=== PATIENT | male | born 1980 | race Caucasian/White ===

== ENCOUNTER 2023-09-09 16:24 | Emergency (ER) | payer BC, SELFPAY ==
[2023-09-09 16:24] VITALS: BP 139/99; PULSE 82; RESP 18; TEMP 36.1; O2SAT 98
--- NOTE | 2023-09-09 16:38 | ED.SKABFB ---
HPI - Skin/Abscess/Foreign Bdy General Chief complaint: Skin/Abscess/Foreign Body Stated complaint: insect bite Time Seen by Provider: 09/09/23 16:27 Source: patient Mode of arrival: ambulatory Limitations: no limitations History of Present Illness HPI narrative: this is a 43-year-old male that presents with some insect bite to his right posterior ear causing inflammation swelling and erythema warmth and tenderness with no fever chills no drainage no chest pain no shortness breath no nausea vomiting. complaint: insect bite/sting Onset (ago): day(s) Location: face Severity: mild Related Data Home Medications Medication Instructions Recorded Confirmed amitriptyline 10 mg tablet 10 mg PO HS 09/09/23 09/09/23 Allergies Allergy/AdvReac Type Severity Reaction Status Date / Time quetiapine [From Seroquel] Allergy Palpitation Verified 09/09/23 16:30 s Review of Systems Review of Systems: All systems reviewed & are unremarkable except as noted in HPI and below PMFSH Past Medical History Medical History History of HIV infection Exam Const: General: healthy appearing and no acute distress Nutritional Appearance: well nourished Orientation/consciousness: patient oriented x3 HENMT: Other: swollen right ear and posterior ear with a punctate lesion erythema warmth and tenderness with palpation with no drainage. Neck: Neck: normal visual inspection Chest: Chest palpation & inspection: normal inspection of the chest Resp: Effort & Inspection: normal respiratory effort Auscultation: clear to auscultation bilaterally Cardio: Rate: regular rate Rhythm: regular rhythm Skin: Wounds: wounds noted Extrem: General: normal to inspection Course Course Emergency Course: Patient received a dose of 1g ceftriaxone IM otherwise doing well will send antibiotics by mouth to his local pharmacy. Vital Signs Vital signs: Vital Signs Temperature 36.1 C L 09/09/23 16:24 Pulse Rate 82 09/09/23 16:24 Respiratory Rate 18 09/09/23 16:24 Blood Pressure 139/99 H 09/09/23 16:24 Pulse Oximetry 98 09/09/23 16:24 Oxygen Delivery Room Air 09/09/23 16:24 Temperature 36.1 C L 09/09/23 16:24 Pulse Rate 82 09/09/23 16:24 Respiratory Rate 18 09/09/23 16:24 Blood Pressure 139/99 H 09/09/23 16:24 Pulse Oximetry 98 09/09/23 16:24 Oxygen Delivery Room Air 09/09/23 16:24 Critical Care Time Critical Care Time Critical Care Time: No Discharge Plan Discharge Clinical Impression: Cellulitis, Insect bites Patient Disposition: Home, Self-Care Condition: Stable Instructions: Antibiotic Form, Cellulitis (ED), Insect Bite or Sting (ED) Additional Instructions: advised to take antibiotics as prescribed and follow with primary if symptoms persist or worsen. Prescriptions: New amoxicillin-pot clavulanate [Augmentin] 500-125 mg tablet 1 tablet PO TID Qty: 30 0RF No Action amitriptyline 10 mg tablet 10 mg PO HS Follow-up/Referrals: UNKNOWN,DOCTOR [Primary Care Provider] - Time of Disposition: 16:43
[2023-09-09] MEDS: cefTRIAXone 1 GM, LIDOCAINE HCL 1% LOCAL INJ 2.1 ML IM (16:48)
== END 2023-09-09 17:00 | disposition home or self-care (01) ==
LOC: CHSED 16:55
PROVIDERS: Emergency Provider Emergency Medicine
DX: S00.462A Insect bite (nonvenomous) of left ear, initial encounter (principal); H60.12 Cellulitis of left external ear; W57.XXXA Bitten or stung by nonvenomous insect and other nonvenomous arthropods, initial encounter; B20 Human immunodeficiency virus [HIV] disease
CPT/HCPCS: 96372; 99283; J0696

== ENCOUNTER 2024-12-22 17:28 | Emergency (ER) | payer BC, SELFPAY ==
--- OUTSIDE RECORDS SUMMARY | 2024-08-31 05:00 | XMS_ITS ---
Author Organization [facility], Address [address] [place] [address] Care Team Providers Care Therapeutic Recreation Leader Name Role Phone JoshuaDelvin Primary Care Provider UnavailGarcía Mckeon Unavailable [phone] ALLERGIES No Known Allergies RESULTS Component Value Reference Range Notes X ray : Cervical Spine 7 vie ws, AP, Lateral, Swimmers, Obliques, Flexion and Extension Reviewed date:08/31/2024 01:25:32 PM Interpretation: Performing Lab: Notes/Report: REASON FOR VISIT REPORT SCANNED INTO PATIENT DOCS/WORK-COMP MEDICATIONS Medication SIG (Take, Route, Fr equency, Duration) Notes Start Date End Date Status Biktarvy Active Nitroglycerin Active Losartan Potassium A ctive Albuterol Active Gabapentin Active Atorvastatin Calcium Active Plavix Active Aspirin Active Metoprolol Succinate Active Jardiance Active PROBLEMS Problem Type ICD Code Onset Dates Problem Status W/U Status Risk SNOMED Code Notes Problem Degeneration of cervical intervertebral disc (M50.30) Active confirmed Degeneration of cervical intervertebral disc (44725314) Problem 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) Active confirmed Joint imp lant in situ (finding) (112733792) Problem Hodgkin lymphoma, unspecified, unspecified site (C81.90) Active confirmed Hodgkin's disea se (disorder) (168310497) Problem Cerebral infarction, unspecified (I63.9) Active confirmed Cerebral infarction (778080584) Problem 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) Active confirmed Old myoca rdial infarction (9711782) Problem Human immunodeficiency virus [HIV] disease (B20) Active confirmed Human immunodeficiency virus infection (62538031) Problem Cervical pain (M54.2) Active confirmed Cervical pain (48915443) VITAL SIGNS BMI 28.48 kg/m2 08/31/2024 Height 72 in 08/31/2024 Weight 210 lbs 08/31/2024 Encounters Encounter Location Date Provider Diagnosis [facility] [address] [place] [address] 08/31/2024 García Valle Degeneration of cerv ical intervertebral disc M50.30 ; Pain in right shoulder M25.511 ; Presence of other orthopedic joint implants Z96.698 ; Hodgkin lymphoma, unspecified, unspecified site C81.90 ; Cerebral infarction, unspecified I63.9 ; Old myocardial infarction I25.2 and Human immunodeficiency virus [HIV] disease B20 ASSESSMENTS Encounter Date Diagnosis Assessment Notes Treatment Notes Treatment Clinical Notes 08/31/2024 Degeneration of cervical intervertebral disc (ICD-10 - M50.30) 08/31/2024 Pain in right should er (ICD-10 - M25.511) 08/31/2024 Presence of other orthopedic joint implants (ICD-10 - Z96.698) 08/31/2024 Hodgkin lymphoma, unspecified, unspecified site (ICD-10 - C81.90) 08/31/2024 Cerebral infarction, unspecified (ICD-10 - I63.9) 08/31/2024 Old myocardial infarction (ICD-10 - I25.2) 08/31/2024 Human immunodeficien cy virus [HIV] disease (ICD-10 - B20) PLAN OF TREATMENT No Information
[2024-12-22 17:30] VITALS: BP 132/89; PULSE 72; RESP 16; TEMP 36.7; O2SAT 93
--- OUTSIDE RECORDS SUMMARY | 2024-12-22 17:30 | XMS_ITS | Clinical Summary ---
Author Organization [facility] Address [address] [place] [address] Phone Care Team Providers Care Driver License Examiner Name Role Phone Jose Roberto Tejeda MD Primary Care Provider + [phone] Allergies Active Allergy Reactions Criticality Noted Date Comments Quetiapine Fumarate Palpitations High 05/09/2019 Passed out, hypertension, hallucinations, palpitations Medications gabapentin (NEURONTIN) 800 MG Tablet Take 800 mg by mouth 4 times daily. 9 Active rOPINIRole (REQUIP) 0.5 MG Tablet Take 0.5 mg by mouth daily as needed. Active fluconazole (DIFLUCAN) 200 MG Tablet TAKE 1 TABLET BY MOUTH EVERY WEEK 0 Active fenofibrate 160 MG Tablet 0 Active metoprolol Succinate (TOPROL-XL) 50 MG TABLET SR 24 HR Take 1 Tab by mouth daily. 0 Active albuterol 108 (90 Base) MCG/ACT Aerosol SolutionIndicat ions:History of COPD take 2 Puffs by inhalation every 4 hours as needed for Wheezing (shortness of breath). 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 HIV (human immunodeficiency virus infection) 04/2005 Immunizations Immunization Administration Dates Next Due Covid-19, Mrna, Lnp-s, Pf, 3 0 Mcg/0.3 Ml Dose ([employer] 07/31/2020,07/03/2020 DTP Vaccine 08/30/1987, 5,07/03/1983,1982,1982 Influenza Vaccine 01/24/2018,02/02/2017,02/29/20 14 Influenza Vaccine, Quadrivalent, PF 02/05/2021,0 04/16/2020 MMR Vaccine 11/27/1992,07/03/1983 OPV 06/18/1984, 4,1982,1982 Pneumococcal Vaccine - 13 Valent 02/28/2014 Pneumococcal Vaccine Adult - 23 Valent 06/28/2014,09/02/2008 TD VACCINE 09/03/2007,07/12/1996 TDAP Vaccine 12/18/2014 Tuberculin Skin Test; [facility] ed Protein Derivative Solutiol 09/11/2013 Family History Medical History Relation Name Comments Diabetes Brother ITP Diabetes Maternal Grandfather TTP Coronary Artery Disease Maternal Grandmother Diabetes Maternal Grandmother Chronic Obstructive Pulmonary Disease Mother Congestive Heart Failure Mother Coronary Artery Disease Mother Diabetes Mother Neuropathy Mother Parkinsonism Mother Relation Name Status Comments Brother Maternal Grandfather Maternal Grandmother Mother Social History Tobacco Use Types Packs/Day Years Used Date Smoking Tobacco: Every Day Cigarettes 1 18.9 Started: 02/05/2006 Smokeless Tobacco: Never Tobacco Cessation:Ready to Q uit: Not Asked; Counseling Given: Not Answered Alcohol Use Standard Drinks/Week Comments Not Currently 0 (1 standard drink = 0.6 oz pur e alcohol) twice a year or less AUDIT-C Answer Date Recorded Frequency of Alcohol Consumption Monthly or less 05/09/2019 Average Number of Drinks Not on file 020 Frequency of Binge Drinking Not on file 04/13 PHQ-2 Answer Date Recorded Total Score - Questions 1-9 0 01/11 Sexually Active Control Partners Comments Yes Male Condom Male intermittent us e Sex and Gender Information Value Date Recorded Sex Assigned at Not on file Legal Sex Male 9:26 AM CDT Gender Identity Not on file Sexual Orientation Not on file 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 Not on file Not on kanu e Last Filed Vital Signs Vital Sign Reading Time Taken Comments Blood Pressure 150/88 04/02/2022 8:37 AM WELL LOGGING CAPTAIN Pulse 90 04/02/2022 8:37 AM WELL LOGGING CAPTAIN Temperature 36.2 C (97.1 F) 04/02/2022 8:37 AM WELL LOGGING CAPTAIN Respiratory Rate 16 04/02/2022 8:37 AM WELL LOGGING CAPTAIN Oxygen Saturation 96% 04/02/2022 8:37 AM WELL LOGGING CAPTAIN Inhaled Oxygen Concentration - - Weight 92.8 kg (204 lb 9.6 oz) 04/02/2022 8:37 A M WELL LOGGING CAPTAIN Height 182.9 cm (6') 04/02/2022 8:37 AM WELL LOGGING CAPTAIN Body Mass Index 27.75 04/02/2022 8:37 AM WELL LOGGING CAPTAIN Plan of Treatment Health Maintenance Due Date Last Done Comments Meningococcal Immunization (ACWY) (1 - Risk 2-dose series) 1984 Hepatitis B Immunization (1 of 3 - 19+ 3-dose series) 2001 Human Papillomavirus (HPV) Immunization (1 - Risk 3-dose SCDM series) 2009 SARS-COV-2 Immunization (3 - Pfizer risk series) 08/28/2020 07/31/2020, 07/03/2020 Influenza Immunization (#1) 12/11/202401/11, 04/16/2020, 01/24/2018, Additional history exists DTaP/Tdap/Td Immunization (7 - Td or Tdap) 12/18/2024 12/18/2014, 09/03/2007, 07/12/1996, Additional history exists Pneumococcal Immunization Combined (4 of 4 - PCV20 or PCV21) 2032 06/28/2014, 02/28/2014, 09/02/2008 Respiratory Syncytial Virus (RSV) Immunization (Adult) (1 - 1-dose 75+ series) 2057 Hepatitis C Virus (HCV) Screening Completed 07/28/2021, 04/16/2020, 03/29/2019 Rotavirus Immunization Aged Out No lo nger eligible based on patient's age to complete this topic Procedures Procedure Name Priority Date/Time Associated Diagnosis Comments HEPATITIS PANEL ACUTE (AHP) Routine 04/16/2020 9:45 AM WELL LOGGING CAPTAIN HIV infection, unspecified symptom status (HCC) On highly active antiretroviral therapy (HAART) Need for hepatitis C screening test from Last 3 Months or Most Recently Relevant to Health Maintenance Results * (ABNORMAL) HEPATITIS PANEL ACUTE (AHP) (04/16/2020 9:45 AM WELL LOGGING CAPTAIN) HEPATITIS A IGM ANTIBODY NEGATIVE NEGATIVE 04/16/2020 5:18 PM WELL LOGGING CAPTAIN [facility] Comment:Samples containing > 500ng/ml of Biotin can have a falsely lower value. HEP B CORE AB (IGM) EQUIVOCAL(A) NEGATIVE 04/16/2020 5:18 PM WELL LOGGING CAPTAIN [facility] Comment: Equivocal result. Suggest repeat testing in 2 weeks to determine Hepatitis antibody status. Samples containing >250ng/ml of Biotin can have a falsely lower value. HEPATITIS B SURFACE ANTIGEN NEGATIVE NEGATIVE 04/16/2020 5:18 PM WELL LOGGING CAPTAIN [facility] Comment:Samples containing > 50 ng/ml of Biotin can have a falsely lower value, in samples with a low concentration of HBsAG HCV QUALITATIVE Negative Negative 5:18 PM [facility] Blood Venipuncture / Unknown 04/16/2020 9:45 AM WELL LOGGING CAPTAIN 04/16/2020 9:45 AM WELL LOGGING CAPTAIN us Baron Rivera MD HEMATOLOGY ORDERABLES Fin al Result [facility] [address] [place] [address] from Last 3 Months or Most Recently Relevant to Health Maintenance Insurance MEDICAID [employer] [place] Care Teams Driver License Examiner Relationship Specialty Start Date End Date Jose Roberto Tejeda MD [address] [address] PCP - General Family Medicine 05/09/19
--- OUTSIDE RECORDS SUMMARY | 2024-12-22 17:30 | XMS_ITS | Encounter Summary ---
Author Organization [facility] Address [address] [place] [address] Phone Care Team Providers Care Oil Refiner Name Role Phone Jose Roberto Tejeda MD Primary Care Provider + [phone] Oz Metz MD Unavailable Unavailable Reason for Visit * Reason Comments Medication Refill Encounter Details Date Type Department Care Team ([facility] st Contact Info) Description 10/17/2020 Refill [facility] [address] [facility] [place] [address] Baron Rivera MD Medication Refill Social History Tobacco Use Types Packs/Day Years Used Date Smoking Tobacco: Former Smokeless Tobacco: Never Alcohol Use Standard Drinks/Week Comments Not Currently 0 (1 standard drink = 0.6 oz pur e alcohol) twice a year or less AUDIT-C Answer Date Recorded Frequency of Alcohol Consumption Monthly or less 05/09/2019 Average Number of Drinks Not on file 020 Frequency of Binge Drinking Not on file 04/13 PHQ-2 Answer Date Recorded Total Score - Questions 1-9 0 08/2020 Sexually Active Control Partners Comments Yes Male Condom Male intermittent us e Sex and Gender Information Value Date Recorded Sex Assigned at Not on file Legal Sex Male 9:26 AM CDT Gender Identity Not on file Sexual Orientation Not on file 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 Not on file Not on file Not on kanu e documented as of this encounter Plan of Treatment Not on file documented as of this encounter Visit Diagnoses Not on filedocumented in this encounter Additional Health Concerns Assessment Noted Time PHQ-9 Depression Total Score: 0 04/16/19 21 9:00 AM COMPLEX CARE NURSE documented as of this encounter Care Teams Oil Refiner Relationship Specialty Start Date End Date Jose Roberto Tejeda MD [address] [address] PCP - General Family Medicine 05/09/19 Oz Metz MD [address] [address] Consulting Physician General Surgery 10/27/19 05/17/23 documented as of this encounter
--- OUTSIDE RECORDS SUMMARY | 2024-12-22 17:30 | XMS_ITS | Encounter Summary ---
Author Organization [facility] Address [address] [place] [address] Phone Care Team Providers Care Dramatic Critic Name Role Phone Jose Roberto Tejeda MD Primary Care Provider Oz Metz MD Unavailable Unavailable Reason for Visit * Reason Comments Medication Refill Encounter Details Date Type Department Care Team ([facility] st Contact Info) Description 09/11/2021 Refill [facility] [address] [facility] [place] [address] Baron Rivera MD Medication Refill Social History Tobacco Use Types Packs/Day Years Used Date Smoking Tobacco: Every Day Cigarettes 0.8 18.9 Started: 02/05/2006 Smokeless Tobacco: Never Alcohol Use Standard Drinks/Week [...] 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 No / Unsure 08/26/2021 8:05 AM CDT documented as of this encounter Miscellaneous Notes * Telephone Encounter - Jg Henry RN - 09/11/2021 3:14 PM CDT Sent refill request back with request for pat documented in this encounter Plan of Treatment Not on file documented as of this encounter Visit Diagnoses Not on filedocumented in this encounter Additional Health Concerns Assessment Noted Time PHQ-9 Depression Total Score: 0 02/06/20 21 9:00 AM CDT documented as of this encounter Care Teams Dramatic Critic Relationship Specialty Start Date End Date Jose Roberto Tejeda MD [address] [place] [id number] PCP - General Family Medicine 05/09/19 Oz Metz MD [address] [address] Consulting Physician General Surgery 10/27/19 05/17/23 documented as of this encounter
--- OUTSIDE RECORDS SUMMARY | 2024-12-22 17:30 | XMS_ITS | Encounter Summary ---
Author Organization [facility] Address [address] [place] [address] Phone Care Team Providers Care Rod Puller And Coiler Name Role Phone Jose Roberto Tejeda MD Primary Care Provider [phone] Oz Metz MD Unavailable Unavailable Reason for Visit * Reason Comments Medication Refill Encounter Details Date Type Department Care Team ([facility] st Contact Info) Description 04/15/2020 Refill [facility] [address] [facility] [place] [address] Baron Rivera MD Medication Refill Social History Tobacco Use Types Packs/Day Years Used Date Smoking Tobacco: Former Smokeless Tobacco: Never Alcohol Use Standard Drinks/Week Comments Yes 0 (1 standard drink = 0.6 oz [...] 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 No / Unsure 04/16/2020 9:34 AM FINGERPRINT CLASSIFIER documented as of this encounter Plan of Treatment Not on file documented as of this encounter Visit Diagnoses Not on filedocumented in this encounter Additional Health Concerns Infection Onset Date Last Indicated Resolved Time COVID - 19 05/05/2020 05/05/2020 05/25/2020 12:1 8 AM FINGERPRINT CLASSIFIER Assessment Noted Time PHQ-9 Depression Total Score: 0 11/08/19 20 1:00 PM CDT documented as of this encounter Care Teams Rod Puller And Coiler Relationship Specialty Start Date End Date Jose Roberto Tejeda MD [address] [address] PCP - General Family Medicine 05/09/19 Oz Metz MD [address] [address] Consulting Physician General Surgery 10/27/19 05/17/23 documented as of this encounter
--- NOTE | 2024-12-22 17:51 | ED.EAR ---
HPI - Ear Problem General Chief complaint: Ear Stated complaint: ear ache Time Seen by Provider: 12/22/24 17:51 Source: patient Limitations: no limitations History of Present Illness HPI Narrative: 44-year-old with a history of hyperlipidemia presents to the ER with a complaint of bilateral ear pain since this morning. Patient states that he tried to flush the ears with saline water ,No fever . MD Complaint: ear pain Location: bilateral Duration: constant Severity: mild Relieving factors: nothing Exacerbating factors: nothing Discharge from ear: Reports no Treatment prior to arrival: attempt at ear wax removal Related Data Home Medications ?Medication ?Instructions ?Recorded ?Confirmed ?Last Taken ?Type amitriptyline 10 mg tablet 10 mg PO HS 09/09/23 09/09/23 Unknown History atorvastatin 10 mg tablet 10 mg PO DAILY 09/09/23 12/22/24 Unknown History gabapentin 800 mg tablet 800 mg PO BID 09/09/23 12/22/24 Unknown History losartan 50 mg tablet 50 mg PO DAILY 09/09/23 09/09/23 Unknown History propranolol 20 mg tablet 20 mg PO DAILY 09/09/23 09/09/23 Unknown History sildenafil 50 mg tablet 50 mg PO PRN PRN Sexual Activity 09/09/23 09/09/23 Unknown History sumatriptan succinate 50 mg tablet 50 mg PO PRN PRN Migraine Headache 09/09/23 09/09/23 Unknown History Allergies Allergy/AdvReac Type Severity Reaction Status Date / Time quetiapine (From Seroquel) Allergy Palpitation Verified 12/22/24 17:40 s Review of Systems Review of Systems: All systems reviewed & are unremarkable except as noted in HPI and below Constitutional: Constitutional: Reports no additional constitutional complaints Eyes: Eyes: Reports no additional eye complaints ENT: Reports as per HPI Cardiovascular: Cardiovascular: Reports no additional cardiovascular complaints Respiratory: Respiratory: Reports no additional respiratory complaints Gastrointestinal: Gastrointestinal: Reports no additional gastrointestinal complaints Integumentary/Breasts: Skin/Breast: Reports system reviewed and no additional complaints, except as docu PMFSH Past Medical History Medical History History of HIV infection Exam Narrative: GENERAL: Well-appearing, well-nourished, and in no acute distress. HEAD: Normocephalic, atraumatic. EYES: PERRLA and EOMI. ENT: Nares clear, no rhinorrhea or epistaxis. Mucous membranes moist. both the TMs clear very minimal amount of cerumen present in the of the left ear canal NECK: Supple. CHEST: Clear to auscultation. No respiratory distress. HEART: Regular rate and rhythm. No murmur heard. Normal peripheral pulses. EXTREMITIES: Normal range of motion. No edema. SKIN: Warm, dry, no rash. NEURO: No focal deficits. Alert and oriented x3. PSYCH: Normal mood and affect. Course Vital Signs Vital signs: Vital Signs Temperature 36.7 C 12/22/24 17:30 Pulse Rate 72 12/22/24 17:30 Respiratory Rate 16 12/22/24 17:30 Blood Pressure 132/89 12/22/24 17:30 Pulse Oximetry 93 12/22/24 17:30 Oxygen Delivery Room Air 12/22/24 17:30 Temperature 36.7 C 12/22/24 17:30 Pulse Rate 72 12/22/24 17:30 Respiratory Rate 16 12/22/24 17:30 Blood Pressure 132/89 12/22/24 17:30 Pulse Oximetry 93 12/22/24 17:30 Oxygen Delivery Room Air 12/22/24 17:30 Medical Decision Making Vital Signs Vital Signs: Vital Signs Temperature 36.7 C 12/22/24 17:30 Pulse Rate 72 12/22/24 17:30 Respiratory Rate 16 12/22/24 17:30 Blood Pressure 132/89 12/22/24 17:30 Pulse Oximetry 93 12/22/24 17:30 Oxygen Delivery Room Air 12/22/24 17:30 Temperature 36.7 C 12/22/24 17:30 Pulse Rate 72 12/22/24 17:30 Respiratory Rate 16 12/22/24 17:30 Blood Pressure 132/89 12/22/24 17:30 Pulse Oximetry 93 12/22/24 17:30 Oxygen Delivery Room Air 12/22/24 17:30 Discharge Plan Discharge Clinical Impression: Otalgia of both ears Patient Disposition: Home Condition: Stable Instructions: Earache (ED) Patient Language: Uzbek Prescriptions: New mometasone [Nasonex 24hr Allergy] 50 mcg/actuation spray,non-aerosol 2 spray intranasal BID Qty: 17 0RF Rx Instructions: administer into each nostril prednisone 20 mg tablet 20 mg PO BID Qty: 10 0RF No Action amitriptyline 10 mg tablet 10 mg PO HS losartan 50 mg tablet 50 mg PO DAILY sildenafil 50 mg tablet 50 mg PO PRN PRN (Reason: Sexual Activity) atorvastatin 10 mg tablet 10 mg PO DAILY sumatriptan succinate 50 mg tablet 50 mg PO PRN PRN (Reason: Migraine Headache) gabapentin 800 mg tablet 800 mg PO BID propranolol 20 mg tablet 20 mg PO DAILY Follow-up/Referrals: Joshua,MD Delvin [Primary Care Provider, Unknown] Time of Disposition: 17:54
--- OUTSIDE RECORDS SUMMARY | 2024-12-22 17:57 | XMS_ITS | Encounter Summary ---
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
--- OUTSIDE RECORDS SUMMARY | 2024-12-22 17:57 | XMS_ITS | Encounter Summary ---
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 Not on file Not on file Not on kanu e documented as of this encounter Plan of Treatment Not on file documented as of this encounter Visit Diagnoses Not on filedocumented in this encounter Additional Health Concerns Assessment Noted Time PHQ-9 Depression Total Score: 0 04/16/19 21 9:00 AM 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
--- OUTSIDE RECORDS SUMMARY | 2024-12-22 17:57 | XMS_ITS | Clinical Summary ---
Author Organization [facility] Address [address] [place] [address] Phone Care Team Providers Care Service Sprinkler Helper Name Role Phone Jose Roberto Tejeda MD Primary Care Provider + [phone] Allergies Active Allergy Reactions Criticality Noted Date [...] EVERY DAY, tab, # 90, eRx: [id number] 1 Active Tivicay 50 MG Tablet TAKE [...] Lnp-s, Pf, 3 0 Mcg/0.3 Ml Dose (Bundle It) 07/31/2020,07/03/2020 DTP Vaccine 08/30/1987, 5,07/03/1983,1982,1982 Influenza Vaccine 01/24/2018,02/02/2017,02/29/20 14 Influenza Vaccine, Quadrivalent, PF 02/05/2021,0 04/16/2020 MMR Vaccine 11/27/1992,07/03/1983 OPV 06/18/1984, 4,1982,1982 Pneumococcal Vaccine - 13 Valent 02/28/2014 Pneumococcal Vaccine Adult - 23 Valent 06/28/2014,09/02/2008 TD VACCINE 09/03/2007,07/12/1996 TDAP Vaccine 12/18/2014 Tuberculin Skin Test; [facility] ed Protein Derivative Solutiol 09/11/2013 Family History [...] 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 Not on file Not on file Not on kanu e Last Filed Vital Signs Vital Sign Reading Time Taken Comments Blood Pressure 150/88 04/02/2022 8:37 AM GAUGER CHIEF Pulse 90 04/02/2022 8:37 AM GAUGER CHIEF Temperature 36.2 C (97.1 F) 04/02/2022 8:37 AM GAUGER CHIEF Respiratory Rate 16 04/02/2022 8:37 AM GAUGER CHIEF Oxygen Saturation 96% 04/02/2022 8:37 AM GAUGER CHIEF Inhaled Oxygen Concentration - - Weight 92.8 kg (204 lb 9.6 oz) 04/02/2022 8:37 A M GAUGER CHIEF Height 182.9 cm (6') 04/02/2022 8:37 AM GAUGER CHIEF Body Mass Index 27.75 04/02/2022 8:37 AM GAUGER CHIEF Plan of Treatment Health Maintenance Due Date [...] PANEL ACUTE (AHP) Routine 04/16/2020 9:45 AM GAUGER CHIEF HIV infection, unspecified symptom status (HCC) On highly active antiretroviral therapy (HAART) Need for hepatitis C screening test from Last 3 Months or Most Recently Relevant to Health Maintenance Results * (ABNORMAL) HEPATITIS PANEL ACUTE (AHP) (04/16/2020 9:45 AM GAUGER CHIEF) HEPATITIS A IGM ANTIBODY NEGATIVE NEGATIVE 04/16/2020 5:18 PM GAUGER CHIEF [facility] Comment:Samples containing > 500ng/ml of Biotin can have a falsely lower value. HEP B CORE AB (IGM) EQUIVOCAL(A) NEGATIVE 04/16/2020 5:18 PM GAUGER CHIEF [facility] Comment: Equivocal result. Suggest repeat testing in 2 weeks to determine Hepatitis antibody status. Samples containing >250ng/ml of Biotin can have a falsely lower value. HEPATITIS B SURFACE ANTIGEN NEGATIVE NEGATIVE 04/16/2020 5:18 PM GAUGER CHIEF [facility] Comment:Samples containing > 50 ng/ml of Biotin can have a falsely lower value, in samples with a low concentration of HBsAG HCV QUALITATIVE Negative Negative 5:18 PM [facility] Blood Venipuncture / Unknown 04/16/2020 9:45 AM GAUGER CHIEF 04/16/2020 9:45 AM GAUGER CHIEF us Baron Rivera MD HEMATOLOGY ORDERABLES Fin al Result [facility] [address] [place] [address] from Last 3 Months or Most Recently Relevant to Health Maintenance Insurance MEDICAID [employer] MEDICAID [place] Care Teams Service Sprinkler Helper Relationship Specialty Start Date End Date Jose Roberto Tejeda MD [address] [address] PCP - General Family Medicine 05/09/19
--- OUTSIDE RECORDS SUMMARY | 2024-12-22 17:57 | XMS_ITS | Clinical Summary ---
Author Organization [facility] Address [facility] [place] [address] Care Team Providers Care Immigration Officer Name Role Phone Jose Roberto Tejeda MD Primary Care Provider [phone] Allergies Active Allergy Reactions Criticality Noted Date Comments Quetiapine Tachycardia 03/15/2021 Medications dolutegravir 50 MG tablet Take 50 mg by mouth daily. 02/06/2021 Active rOPINIRole 0.5 MG tablet Take 0.5 mg by mouth daily as needed. Active emtricitabine-te nofovir 200-300 MG tablet Take 1 tablet by mouth daily. 02/06/2021 Active albuterol sulfate HFA 108 (90 Base) MCG/ACT inhaler Inhale 2 puffs into the lungs. 05/05/2020 Active darunavir-cobici stat (PREZCOBIX) 800 mg-150 mg tablet Take 1 tablet by mouth daily. 02/24/2021 Active gabapentin 800 MG tablet Take 800 mg by mouth 4 (four) times daily. Active Family History Medical History Relation Comments Diabetes Brother Diabetes Maternal Grandfather Heart Disease Maternal Grandfather Kidney Disease Maternal Grandfather Diabetes Maternal Grandmother Diabetes Mother Emphysema Mother Heart Disease Mother Parkinson's Disease Mother Relation Status Comments Brother Alive Maternal Grandfather Alive Maternal Grandmother Alive Mother Alive Social History Tobacco Use Types Packs/Day Years Used Date Smoking Tobacco: Every Day Cigarettes Smokeless Tobacco: Never Tobacco Cessation:Ready to Q uit: No; Counseling Given: Yes Alcohol Use Standard Drinks/Week Comments Not Currently 0 (1 standard drink = 0.6 oz pur e alcohol) Sex and Gender Information Value Date Recorded Sex Assigned at Not on file Legal Sex Male 10:48 PM SPRAGGER Gender Identity Not on file Sexual Orientation Not on file Last Filed Vital Signs Vital Sign Reading Time Taken Comments Blood Pressure 130/87 03/15/2021 4:30 AM SPRAGGER Pulse 89 03/15/2021 5:30 AM SPRAGGER Temperature 36.6 C (97.8 F) 03/15/2021 3:07 AM SPRAGGER Respiratory Rate 16 03/15/2021 5:30 AM SPRAGGER Oxygen Saturation 98% 03/15/2021 5:30 AM SPRAGGER Inhaled Oxygen Concentration - - Weight 97.5 kg (215 lb) 03/15/2021 3:21 AM SPRAGGER Height 182.9 cm (6') 03/15/2021 3:21 AM SPRAGGER Body Mass Index 29.16 03/15/2021 3:21 AM SPRAGGER Plan of Treatment Health Maintenance Due Date Last Done Comments Annual Physical 1985 Hepatitis B Vaccines (1 of 3 - 19+ 3-dose series) 2001 HPV Vaccines (1 - 3-dose SCDM series) 2009 COVID-19 Vaccine (3 - season) 2024 07/31/2020, 07/03/2020 DTaP, Tdap and Td Vaccines (7 - Td or Tdap) 12/18/2024 12/18/2014, 09/03/2007, 07/12/1996, Additional history exists Pneumococcal Vaccine: Pediatrics (0 to 5 Years) and At-Risk Patients (6 to 49 Years) (3 of 3 - PCV20 or PCV21) 2032 06/28/2014, 02/28/2014, 09/02/2008 Hepatitis C Completed 06/05/2022, 07/28/2021 Meningococcal B Vaccine Aged Out No l onger eligible based on patient's age to complete this topic Meningococcal Vaccine Aged Out No pam soledad eligible based on patient's age to complete this topic RSV Immunizations Under 20 Months Aged Out No longer eligible based on patient's age to complete this topic Procedures Procedure Name Priority Date/Time Associated Diagnosis Comments HEPATITIS PANEL,ACUTE Routine 06/05/2022 12:45 PM SPRAGGER HIV infection, asymptomatic On highly active antiretroviral therapy (HAART) from Last 3 Months or Most Recently Relevant to Health Maintenance Results * (ABNORMAL) HEPATITIS PANEL,ACUTE (06/05/2022 12:45 PM SPRAGGER) HEPATITIS B SURFACE AG NON-REACTIVE NON-REACT GABBIE 06/06/2022 9:[address] [facility] Comment:HBsAg NOT DETECTED. HEP B CORE IGM EQUIVOCAL RESULT(A) NON-REACT GABBIE 06/06/2022 9:[address] [facility] Comment: ANTIBODIES TO IgM ANTI HBc MAY OR MAY NOT BE PRESENT. CONSIDER RETESTING AT APPROXIMATELY ONE WEEK INTERVALS. HIGH DOSES OF BIOTIN MAY INTERFERE WITH THIS TEST RESULT. CORRELATION TO CLINICAL HISTORY AND PRESENTATION RECOMMENDED. HAV IGM NON-REACTIVE NON-REACT GABBIE 06/06/2022 9:[address] [facility] Comment: IgM ANTI HAV NOT DETECTED. DOES NOT EXCLUDE THE POSSIBILITY OF EXPOSURE TO OR INFECTION WITH HAV. LEVELS OF IgM ANTI HAV MAY BE BELOW THE CUTOFF IN EARLY INFECTION. HEPATITIS C AB NON-REACTIVE NON-REACT GABBIE 06/06/2022 9:[address] [facility] Comment: ANTIBODIES TO HCV NOT DETECTED. DOES NOT EXCLUDE THE POSSIBILITY OF EXPOSURE TO HCV. 06/05/2022 12:4 5 PM SPRAGGER Brady Powell MD LABORATORY Final Result [facility] [address] [place] [address], [id number] from Last 3 Months or Most Recently Relevant to Health Maintenance Insurance [employer] Care Teams Immigration Officer Relationship Specialty Start Date End Date Jose Roberto Tejeda MD [address] [place] [address] PCP - General FAMILY PRACTICE 03/15/21
--- OUTSIDE RECORDS SUMMARY | 2024-12-22 17:57 | XMS_ITS | Clinical Summary ---
Author Organization [facility] Address [address] [place] [address] Care Team Providers Care Oiler Helper Name Role Phone Delvin Lewis MD Primary Care Provider [phone] Melany Serra PT Unavailable Unavailabl e Allergies Active Allergy Reactions Criticality Noted Date Comments Quetiapine Palpitations,Other (See comments) High 04/23/2011 tachycardia and elevated blood pressure Passed out, hypertension, hallucinations, palpitations Tachycardia seroquel Medications cyanocobalamin , vitamin B-12, (VITAMIN B-12 ORAL)Indicatio ns:supplement Take 1 Caplet by mouth nightly Active blood-glucose meter (OneTouch Ultra2 Meter) misc USE DAILY 1 each 1 09/20/19 24 Active aspirin 81 mg enteric coated tabletIndicati ons:cardiovasc ular disease Take 1 tablet (81 mg total) by mouth daily 07/27/19 25 026 Active nitroglycerin (NITROSTAT) 0.[address] 1 tablet (0.4 mg total) under the tongue every 5 (five) minutes as needed for chest pain May repeat every 5 minutes for up to 3 doses. 100 tablet 07/26/[address] (CYMBALTA) 20 mg capsule Take 1 capsule (20 mg total) by mouth 2 (two) times a day 180 capsule 1 07/28/19 25 Active atorvastatin (LIPITOR) 80 mg tablet Take 0.5 tablets (40 mg total) by mouth daily 45 tablet 3 08/02/19 25 026 Active empagliflozin (JARDIANCE) 10 mg tabletIndicati ons:Chronic diastolic congestive heart failure, NYHA class 2 (HCC) Take 1 tablet (10 mg total) by mouth daily 90 tablet 3 08/10/19 25 Active metoprolol XL (TOPROL-XL) 50 mg extended release tabletIndicati ons:cardiovasc ular disease Take 1 tablet (50 mg total) by mouth 2 (two) times a day 180 tablet 3 08/10/19 25 Active albuterol HFA (PROVENTIL HFA,VENTOLIN HFA,PROAIR HFA) 90 mcg/actuation inhaler INHALE 2 PUFFS BY MOUTH EVERY 4 HOURS NEEDED FOR WHEEZING OR SHORTNESS OF BREATH 8.5 g 5 09/06/19 25 Active losartan (COZAAR) 50 mg tablet TAKE 1 TABLET(50 MG) BY MOUTH DAILY 90 tablet 3 09/13/19 25 Active clopidogreL (PLAVIX) 75 mg tabletIndicati ons:myocardial infarction prevention,car diovascular disease Take 1 tablet (75 mg total) by mouth daily 90 tablet 3 09/27/19 25 026 Active sildenafiL (VIAGRA) 50 mg tablet 09/08/19 25 Active bictegravir-em tricitabine-te nofovir (BIKTARVY) 50-200-25 mg tabletIndicati ons:HIV infection Take 1 tablet by mouth daily 30 tablet 3 10/03/19 25 Active gabapentin (NEURONTIN) 800 mg tablet TAKE 1 TABLET(800 MG) BY MOUTH THREE TIMES DAILY 270 tablet 1 12/13/19 25 Active gabapentin (NEURONTIN) 800 mg tablet Take 1 tablet (800 mg total) by mouth 3 (three) times a day 270 tablet 1 09/13/19 25 025 Discontinued Active Problems Problem Noted Date Diagnosed Date Aneurysm of ascending aorta without rupture 10/12 Overview (11/09/2024): 07/24/2024: 2D echo Doppler Mild ascending aortic aneurysm measured at 4.1 cm Assessment & Plan (11/09/2024 10:38 AM CDT): Patient without any complaints of back pain chest pain. Echo results were discussed with the patient. Plan: Scheduled the patient for a CTA of the chest abdomen and pelvis We will continue to follow aneurysm with serial echoes and if necessary chest CTs. Continue metoprolol 50 mg 1 p.o. b.i.d. Follow up in 6 months' time Tobacco use 11/09/2024 Overview (11/09/2024): Patient smokes 2-2-1/2 packs per day. States he has cut it back to 1 pack per day since having a heart attack Assessment & Plan (11/09/2024 10:38 AM CDT): Spent approximately 5 minutes discussed the need to stop all tobacco products. Plan: Encourage discontinuation all tobacco products Follow up 6 months time Healthcare maintenance 10/02/2024 Assessment & Plan (10/02/2024 8:57 AM CDT): Baseline labs: _ G6PD: unk or n/a _ HLA B*[id number]: unk or n/a _ CMV IgG: positive 06/2024 _ Toxo IgG: unk or n/a Vaccinations: See above _ Influenza: 02/2024 _ Sars-cov-2: several, 07/2020 _ MenACWY (0, 8 wks+; rpt q 5 yrs): unk or n/a _ Tdap (q 10 yrs): 12/2014 [] Hep B (0, 1, +/- 6 months; +/- CD4>200): immune 03/2024 [] Hep A (0, 6-12 months; +/- CD4>200): immune 02/2024 [] HPV (thru age 26; 0, 1-2, 6 months): unk or n/a [] MMR (0, 8 wk) unless [] Born before 1954 [] Lab immune; note: x2 - 11/1992 [] PCV-20/21: 02/2024 [] PCV-13: unk or n/a; PPSV-23 (0, 5 yrs+; CD4>200): 06/2014 [] RANDI (0, 3 months; CD4 > 200): unk or n/a [] RZV (0, 2-6 months; CD4 > 200): unk or n/a *(for those w/ h/o infx [born <1980=99%], lab immunity, VARx2) Other: [] RSV (75+ or 60-74 w/ RF); [] Mpox: unk Cancer screening: _ Anal cancer/ MARIBEL (yearly): unk or n/a _ Colon cancer (>45 or earlier if high risk factors): unk or n/a _ Prostate cancer (discuss): unk or n/a _ Breast cancer/ mammography (biennial 40-75): unk or n/a _ PAP smear: unk or n/a _ Lung cancer (annually if age 50-80, 20 pack-year hx, current or former < 15 yr smoker): unk or n/a Other: Dexa (post-menopausal and men > 50): unk or n/a 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 Status post PCI stenting with a 2.5 x 26 arlene Tompkins drug-eluting stent. Note dilated to 3.5 post deployment Assessment & Plan (11/09/2024 10:41 AM CDT): Patient doing well with no complaints of chest discomfort heaviness tightness or squeezing. No dyspnea on exertion PND or orthopnea. Tolerating in his medications well. Plan: Continue aspirin 81 mg daily Continue metoprolol XL 50 mg 1 p.o. b.i.d. Continue losartan 50 mg daily Continue Jardiance 10 mg daily Continue aggressive control of his cholesterol with Lipitor 40 mg once daily. Last LDL calculated was 66. Repeat his lipid profile in 6 months' time if he continues to have LDL above 50 would recommend a more aggressive treatment with doubling the Lipitor to 80 or adding Zetia 10 mg daily Chronic diastolic congestive heart failure, NYHA class 2 08/09/2024 Overview (11/09/2024): 07/24/2024 2D echo Doppler my interpretation Normal left ventricular cavity size and function; EF 60%; strain rate and -16 mildly reduced. Normal left ventricular cavity size and function Mild ascending aortic aneurysm measured at 4.1 cm Mild insufficiency of the mitral tricuspid valve Assessment & Plan (11/09/2024 1:35 PM CDT): Asymptomatic Follow up cardio Assessment & Plan (11/09/2024 10:42 AM CDT): Patient doing well with no complaints of chest pain heaviness tightness squeezing. No PND or orthopnea near-complete syncope shortness of breath lower extremity edema. Plan: Continue metoprolol 50 mg 1 p.o. b.i.d. Continue losartan 50 mg daily Continue aggressive control of lipids with atorvastatin 40 mg daily Continue aggressive control of his glucose with maintaining his hemoglobin A1c below 7.0%. Deferring this to primary at the present time. Continue Jardiance 10 mg once a day NSTEMI (non-ST elevated myocardial infarction) 0 07/23/2024 Assessment & Plan (11/09/2024 12:52 PM CDT): stable Follows with Cardiology Continue Rx Plavix daily, ASA 81mg daily, atorvastatin and metoprolol Assessment & Plan (07/27/2024 9:19 AM CDT): New problem, reason for hospitalization. Follows with Cardiology Continue Rx Plavix daily, ASA 81mg daily, atorvastatin and metoprolol Frequent headaches 03/22/2024 Assessment & Plan (03/22/2024 7:37 AM COMMERCIAL LINES UNDERWRITER): Recommend neuro follow up Anxiety 01/18/2024 Assessment & Plan (07/27/2024 9:32 AM CDT): Staes that anxiety has worsened especially due to recent hospitalization Continue Rx: Cymbalta 20mg BID and Hydroxyzine 25mg BID PRN Denies SI/HI at this time. Emergent BH information given including 911 with worsening Assessment & Plan (06/13/2024 7:48 AM COMMERCIAL LINES UNDERWRITER): Staes that anxiety has worsened But he feels more frustrated and doesn't knwo what to do about it Mostly frustrated with medical system due to his injury Assessment & Plan (01/18/2024 8:23 AM CDT): Staes that anxiety has worsened Has been having intermittent shortness of breath/tightness in chest/ ringing in ears Start duloxetine 20 mg bid for anxiety and to improve with pain/arm pain Current smoker 01/18/2024 Assessment & Plan (07/27/2024 9:15 AM CDT): Chronic problem. Smoking cessation encouraged. Information/education and counseling provided re: nicotine patches, daniel, [id number]. Cervical radiculopathy 07/23/2023 Assessment & Plan (06/13/2024 7:41 AM COMMERCIAL LINES UNDERWRITER): CTs pending Requested prior to scheduling with [facility] neurosurgery Assessment & Plan (08/17/2023 4:42 PM CDT): Improved since his surgery Numbness and tingling of right hand 05/27/2023 Assessment & Plan (06/10/2023 8:20 AM COMMERCIAL LINES UNDERWRITER): Not at goal Following ortho MRI elbow scheduled for 06/16 Prediabetes 03/09/2023 Assessment & Plan (11/09/2024 12:53 PM CDT): Chronic, stable. Hgb A1C Date Value Ref Range Status 07/24/2024 5.7 (H) 4.0 - 5.6 % Final 03/22/2024 5.5 4.0 - 5.6 % Final 02/21/2024 5.8 (H) 4.0 - 5.6 % Final Labs reviewed indicating glycemic control Recommend continue nutrition and exercise changes to prevent progression to T2DM. Consider [facility] nutrition services for diabetic education in the future. Assessment & Plan (07/27/2024 9:17 AM CDT): Chronic, stable. Hgb A1C Date Value Ref Range Status 07/24/2024 5.7 (H) 4.0 - 5.6 % Final 03/22/2024 5.5 4.0 - 5.6 % Final 02/21/2024 5.8 (H) 4.0 - 5.6 % Final Labs reviewed indicating glycemic control Recommend continue nutrition and exercise changes to prevent progression to T2DM. Consider [facility] nutrition services for diabetic education in the future. Assessment & Plan (06/10/2023 8:20 AM COMMERCIAL LINES UNDERWRITER): Lab Results Component Value Date HGBA1C 5.8 (H) 03/01/2023 Lab Results Component Value Date LDLCALC 78 03/01/2023 CREATININE 1.05 03/01/2023 At goal A1c Continue diet and exercise changes Every 6-12 months Assessment & Plan (03/09/2023 7:46 AM COMMERCIAL LINES UNDERWRITER): Lab Results Component Value Date HGBA1C 5.8 (H) 03/01/2023 Lab Results Component Value Date LDLCALC 78 03/01/2023 CREATININE 1.05 03/01/2023 At goal A1c New problem Monitor A1c yearly Mixed hyperlipidemia 03/09/2023 Assessment & Plan (11/09/2024 12:54 PM CDT): Lab Results Component Value Date CHOL 138 07/24/2024 CHOL 172 03/22/2024 CHOL 154 02/21/2024 Lab Results Component Value Date HDL 22 (L) 07/24/2024 HDL 30 (L) 03/22/2024 HDL 28 (L) 02/21/2024 Lab Results Component Value Date LDLCALC 66 07/24/2024 LDLCALC 105 03/22/2024 LDLCALC 100 02/21/2024 Lab Results Component Value Date TRIG 310 (H) 07/24/2024 TRIG 214 (H) 03/22/2024 TRIG 148 02/21/2024 Chronic condition, at goal LDL <100. Continue statin therapy as Rx: lipitor 80mg daily. Assessment & Plan (07/27/2024 9:27 AM CDT): Lab Results Component Value Date CHOL 138 07/24/2024 CHOL 172 03/22/2024 CHOL 154 02/21/2024 Lab Results Component Value Date HDL 22 (L) 07/24/2024 HDL 30 (L) 03/22/2024 HDL 28 (L) 02/21/2024 Lab Results Component Value Date LDLCALC 66 07/24/2024 LDLCALC 105 03/22/2024 LDLCALC 100 02/21/2024 Lab Results Component Value Date TRIG 310 (H) 07/24/2024 TRIG 214 (H) 03/22/2024 TRIG 148 02/21/2024 Chronic condition, not at goal LDL <100. Continue statin therapy as Rx: lipitor 80mg daily. Was previously on 10mg dose of this medication. I personally reviewed the above laboratory data indicating suboptimal control. Recommend heart-healthy diet. Assessment & Plan (06/13/2024 7:42 AM COMMERCIAL LINES UNDERWRITER): Lab Results Component Value Date CHOL 172 03/22/2024 CHOL 154 02/21/2024 CHOL 139 03/01/2023 Lab Results Component Value Date HDL 30 (L) 03/22/2024 HDL 28 (L) 02/21/2024 HDL 30 (L) 03/01/2023 Lab Results Component Value Date LDLCALC 105 03/22/2024 LDLCALC 100 02/21/2024 LDLCALC 78 03/01/2023 Lab Results Component Value Date TRIG 214 (H) 03/22/2024 TRIG 148 02/21/2024 TRIG 153 (H) 03/01/2023 No results found for: POCCHDLR No results found for: POCNONHDL No results found for: POCCHLPL The 10-year ASCVD risk score (Cristopher STREETER, et al., 2019) is: 5.8% Values used to calculate the score: Age: 44 years Sex: Male Is Non- : No Diabetic: No Tobacco smoker: Yes Systolic Blood Pressure: 110 mmHg Is BP treated: Yes HDL Cholesterol: 30 mg/dL Total Cholesterol: 172 mg/dL At goal at thsi time Low HDL Continue diet and exercise modifications C/w lipitor 10 mg every day now Assessment & Plan (03/22/2024 7:33 AM COMMERCIAL LINES UNDERWRITER): Lab Results Component Value Date CHOL 154 02/21/2024 CHOL 139 03/01/2023 Lab Results Component Value Date HDL 28 (L) 02/21/2024 HDL 30 (L) 03/01/2023 Lab Results Component Value Date LDLCALC 100 02/21/2024 LDLCALC 78 03/01/2023 Lab Results Component Value Date TRIG 148 02/21/2024 TRIG 153 (H) 03/01/2023 No results found for: POCCHDLR No results found for: POCNONHDL No results found for: POCCHLPL The 10-year ASCVD risk score (Cristopher STREETRE et al., 2019) is: 8% Values used to calculate the score: Age: 44 years Sex: Male Is Non- : No Diabetic: No Tobacco smoker: Yes Systolic Blood Pressure: 140 mmHg Is BP treated: Yes HDL Cholesterol: 28 mg/dL Total Cholesterol: 154 mg/dL At goal at thsi time Low HDL Continue diet and exercise modifications C/w lipitor 10 mg every day now Assessment & Plan (06/10/2023 8:19 AM COMMERCIAL LINES UNDERWRITER): Lab Results Component Value Date CHOL 139 03/01/2023 Lab Results Component Value Date HDL 30 (L) 03/01/2023 Lab Results Component Value Date LDLCALC 78 03/01/2023 Lab Results Component Value Date TRIG 153 (H) 03/01/2023 No results found for: POCCHDLR No results found for: POCNONHDL No results found for: POCCHLPL The 10-year ASCVD risk score (Cristopher STREETER, et al., 2019) is: 5% Values used to calculate the score: Age: 43 years Sex: Male Is Non- : No Diabetic: No Tobacco smoker: Yes Systolic Blood Pressure: 132 mmHg Is BP treated: Yes HDL Cholesterol: 30 mg/dL Total Cholesterol: 139 mg/dL At goal at thsi time Low HDL Continue diet and exercise modifications C/w lipitor 10 mg every day now Assessment & Plan (03/09/2023 8:13 AM COMMERCIAL LINES UNDERWRITER): Lab Results Component Value Date CHOL 139 03/01/2023 Lab Results Component Value Date HDL 30 (L) 03/01/2023 Lab Results Component Value Date LDLCALC 78 03/01/2023 Lab Results Component Value Date TRIG 153 (H) 03/01/2023 No results found for: POCCHDLR No results found for: POCNONHDL No results found for: POCCHLPL The 10-year ASCVD risk score (Cristopher STREETER, et al., 2019) is: 4.6% Values used to calculate the score: Age: 43 years Sex: Male Is Non- : No Diabetic: No Tobacco smoker: Yes Systolic Blood Pressure: 137 mmHg Is BP treated: No HDL Cholesterol: 30 mg/dL Total Cholesterol: 139 mg/dL At goal at thsi time Low HDL Continue diet and exercise modifications Will refuill lipitor 10 mg every day now HIV infection 03/09/2023 Assessment & Plan (11/09/2024 12:54 PM CDT): Follows with ID, -current regimen: Biktarvy PO daily Assessment & Plan (07/27/2024 9:19 AM CDT): Follows with ID, management per that specialist. -current regimen: Biktarvy PO daily, recommend continuing as Rx Assessment & Plan (06/13/2024 7:42 AM COMMERCIAL LINES UNDERWRITER): Continue current regimen Follow up ID as indicated by them Assessment & Plan (03/22/2024 7:19 AM COMMERCIAL LINES UNDERWRITER): Continue current regimen Follow up ID as indicated by them Assessment & Plan (01/18/2024 8:13 AM CDT): Continue current retroviral and ID follow up recommended Assessment & Plan (06/10/2023 8:25 AM COMMERCIAL LINES UNDERWRITER): Continue current retroviral and ID follow up recommended Assessment & Plan (03/09/2023 7:45 AM COMMERCIAL LINES UNDERWRITER): Continue current retroviral and ID follow up recommended History of Hodgkin's lymphoma 03/09/2023 Assessment & Plan (03/22/2024 7:38 AM COMMERCIAL LINES UNDERWRITER): Normal cbc Repeat now, check cxr Referral to oncology for follow up Assessment & Plan (03/09/2023 8:10 AM COMMERCIAL LINES UNDERWRITER): Normal cbc But in setting of weight loss Will do full work up Essential hypertension 03/09/2023 Assessment & Plan (11/09/2024 12:55 PM CDT): BP Readings from Last 3 Encounters: 11/09/24 134/74 11/01/24 140/89 10/02/24 119/78 There were no vitals taken for this visit. Lab Results Component Value Date POTASSIUM 3.3 07/25/2024 HPI: Condition is stable A&P: Discussed/ordered labs, encouraged healthy, low carbohydrate lifestyle and at least 150min/week of exercise, continue on - Continue metoprolol XL 50 mg 1 p.o. b.i.d. - Continue losartan 50 mg daily - Continue to monitor blood pressure at home record them and bring him in for evaluation next visit Assessment & Plan (11/09/2024 10:42 AM CDT): Patient is presently doing well on current treatment plan. He is having no complaints of headaches blurred vision double vision or other complaints compatible with prolonged elevation of blood pressure. He is not routinely taking his blood pressure at home however when he does take it is 120/70. Plan: Continue metoprolol XL 50 mg 1 p.o. b.i.d. Continue losartan 50 mg daily Continue to monitor blood pressure at home record them and bring him in for evaluation next visit Assessment & Plan (07/27/2024 9:16 AM CDT): BP Readings from Last 3 Encounters: 07/27/24 138/84 07/25/24 136/98 07/21/24 128/83 Chronic condition. Stable. Continue losartan 50mg and metoprolol XL 100mg daily as Rx. Recommend heart-healthy diet and regular exercise. Assessment & Plan (06/13/2024 7:42 AM COMMERCIAL LINES UNDERWRITER): BP Readings from Last 3 Encounters: 06/13/24 110/70 06/12/24 144/98 06/09/24 122/84 Vitals BP 110/70 (BP Location: Left arm, Patient Position: Sitting) Pulse 91 Resp 16 Ht 182.9 cm (6' 0.01) Wt 97.6 kg (215 lb 1.6 oz) SpO2 95% BMI 29.17 kg/m Lab Results Component Value Date POTASSIUM 3.8 05/19/2024 At goal C/w propranolol 20 mg tid, losartan to 50 mg every day Assessment & Plan (03/22/2024 7:20 AM COMMERCIAL LINES UNDERWRITER): BP Readings from Last 3 Encounters: 03/22/24 140/88 02/21/24 146/91 02/03/24 132/70 Vitals BP 140/88 (BP Location: Left arm, Patient Position: Sitting) Pulse 89 Resp 16 Ht 182.9 cm (6' 0.01) Wt 95.6 kg (210 lb 12.8 oz) SpO2 96% BMI 28.58 kg/m Lab Results Component Value Date POTASSIUM 3.6 02/21/2024 Not at goal at this time C/w propranolol 20 mg tid, losartan to 50 mg every day Assessment & Plan (01/18/2024 8:29 AM CDT): BP Readings from Last 3 Encounters: 01/18/24 128/94 08/17/23 130/82 07/28/23 (!) 156/109 Vitals BP 128/94 (BP Location: Right arm, Patient Position: Sitting) Pulse 86 Resp 16 Ht 170.2 cm (5' 7.01) Wt 92.3 kg (203 lb 6.4 oz) SpO2 97% BMI 31.85 kg/m Lab Results Component Value Date POTASSIUM 3.5 08/30/2023 Not at goal at this time C/w propranolol 20 mg tid, losartan to 50 mg every day Assessment & Plan (08/17/2023 4:41 PM CDT): BP Readings from Last 3 Encounters: 08/17/23 130/82 07/28/23 (!) 156/109 07/26/23 137/90 Vitals BP 130/82 (BP Location: Left arm, Patient Position: Sitting) Pulse 104 Resp 16 Ht 182.9 cm (6' 0.01) Wt 93.4 kg (206 lb) SpO2 98% BMI 27.93 kg/m Lab Results Component Value Date POTASSIUM 4.0 07/26/2023 Not at goal at this time C/w propranolol 20 mg tid, increase losartan to 50 mg every day Assessment & Plan (06/10/2023 8:19 AM COMMERCIAL LINES UNDERWRITER): BP Readings from Last 3 Encounters: 05/04/23 143/85 03/09/23 150/90 08/30/22 137/90 Vitals Resp 16 Ht 182.9 cm (6' 0.01) Wt 91.8 kg (202 lb 6.4 oz) BMI 27.44 kg/m Lab Results Component Value Date POTASSIUM 4.0 03/01/2023 Not at goal at this time C/w propranolol 20 mg tid, increase losartan to 50 mg every day Assessment & Plan (03/09/2023 8:15 AM COMMERCIAL LINES UNDERWRITER): BP Readings from Last 3 Encounters: 03/09/23 150/90 08/30/22 137/90 Vitals BP 150/90 (BP Location: Left arm, Patient Position: Sitting) Pulse 75 Resp 18 Ht 182.9 cm (6') Wt 89.8 kg (198 lb) SpO2 99% BMI 26.85 kg/m Lab Results Component Value Date POTASSIUM 4.0 03/01/2023 Not at goal at this time Stop metoprolol now Switch to propranolol 20 mg tid Start losartan 25 mg every day Resolved Problems Problem Noted Date Diagnosed Date Resolved Date Mixed hyperlipidemia 11/09/2024 025 Overview (11/09/2024): Presently on Lipitor 40 mg daily. 07/24/2024: Lipid profile. Total cholesterol 138; HDL 22; LDL calculated 66; triglycerides 310 Assessment & Plan (11/09/2024 12:53 PM CDT): Lab Results Component Value Date CHOL 138 07/24/2024 CHOL 172 03/22/2024 CHOL 154 02/21/2024 Lab Results Component Value Date HDL 22 (L) 07/24/2024 HDL 30 (L) 03/22/2024 HDL 28 (L) 02/21/2024 Lab Results Component Value Date LDLCALC 66 07/24/2024 LDLCALC 105 03/22/2024 LDLCALC 100 02/21/2024 Lab Results Component Value Date TRIG 310 (H) 07/24/2024 TRIG 214 (H) 03/22/2024 TRIG 148 02/21/2024 No results found for: POCCHDLR No results found for: POCNONHDL No results found for: POCCHLPL LDL at goal < 70 \continue statin Encounters Date Type Department Care Team Description 11/17/2024 Results Follow-Up [facility] Cardiology [address] [place] [address] [address] [place] [phone] Chest Abdomen Pelvis W Contrast 11/15/2024 8:00 AM CDT - 11/15/2024 11:59 PM CDT Hospital Encounter [facility] Imaging [address] [place] [address] Aneurysm of ascending aorta without rupture Discharge Disposition: Discharge to home or self care 11/13/2024 6:50 AM CDT Lab [address] [phone] Prediabetes; Hyperglycemia 11/13/2024 6:45 AM CDT Lab [address] [phone] Asymptomatic HIV infection, with no history of HIV-related illness (HCC) 11/09/2024 12:45 PM CDT Office Visit [facility] [address] [place] [address] [address] [place] [phone] Delvin Lewis MD Prediabetes (Primary Dx); 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; Chronic diastolic congestive heart failure, NYHA class 2 (HCC); NSTEMI (non-ST elevated myocardial infarction) (HCC); Mixed hyperlipidemia; Asymptomatic HIV infection, with no history of HIV-related illness (HCC); Essential hypertension; Hyperglycemia; Elevated blood sugar 11/09/2024 8:00 AM CDT Office Visit [facility] Cardiology [address] [place] [address] [address] [place] [address] Oz Scott MD 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 Medicine Neurology [address] [facility] Medical Office [address], [address] [place] [address] Danna Dougherty NP Cerebrovascular accident (CVA), unspecified mechanism (HCC) (Primary Dx); Prediabetes; HTN, goal below 130/80; Current smoker; Cervical radiculopathy 10/10/[address] [facility] Medical Group Primary Care at [address] [place] [phone] Delvin Lewis MD Appointment 10/05/[address] [facility] [address] [place] [address] Office [facility] [address] [place] [address] Jaspal Torres MD 10/04/[address] [facility] Medical [facility] Primary Care at [address] [place] [phone] Delvin Lewis MD Appointment 10/02/2024 3:20 PM CDT Office Visit [facility] Infectious Diseases [address] [facility] [address] [place] [phone] Brady Puckett MD Asymptomatic HIV infection, with no history of HIV-related illness (HCC) (Primary Dx); Long-term use of high-risk medication; Screening examination for sexually transmitted disease; Healthcare maintenance; Nicotine dependence with current use 09/22/[address] [facility] [address] [place] [address] Office [facility] [address] [place], [place] [phone] Jaspal Torres MD 09/21/2024 Telephone [facility] [address] [place] [address] Office [facility] [address] [place] [phone] Gemini Bermeo CLT from Last 3 Months Immunizations Immunization Administration Dates Next Due DTP 08/30/1987, 5,07/03/1983,07/09,1982 DTaP 08/30/1987, 5,07/03/1983,07/09,1982 Influenza LAIV (Nasal) 04/16/2020,01/24/2018 Influenza, Quadrivalent, Spl it, Intramuscular 03/26/2023(Deferred: Patient Refused),03/23/2022(Deferred: Patient Refused) Influenza, Quadrivalent, Spl it, Preservative Free, Intramuscular 07/09/2023(Deferred: Patient Refused),06/10/2023(Deferred: Patient Refused),02/05/2021,04/16/2020, 018,02/02/2017,02/28/2014 Influenza, Trivalent, Adjuva nted, Intramuscular 01/18/2024(Deferred: Patient Refused) Influenza, Trivalent, Cell Culture-based MDCK, Preservative Free, Antibiotic Free, Intramuscular 02/21/2024 Influenza, Trivalent, Preser vative Free, Intramuscular 01/24/2018,02/02/2017,02/28/2014 Influenza, Unspecified 02/02/2017,2013,03/07/2013,02/08,01/11/2012 MMR 11/27/1992,07/03/1983 OPV 06/18/1984, 4,1982,04/30 PPD TEST 09/11/2013 Pneumococcal Conjugate PCV 13 02/28/2014 Pneumococcal Conjugate Pcv20 02/21/2024 Pneumococcal Polysaccharide PPV23 06/28/2014,,09/02/2008 Td, Unspecified 09/03/2007 Td, adsorbed 09/03/2007,07/12/1996 Tdap 12/18/2014 Surgical History Surgery Date Site/Laterality Comments LUNG BIOPSY 04/12/1998 - 04/11/1999 PORT PLACEMENT CHEST >5 YEARS 03/29/2016 N/A CARDIAC CATHETERIZATION 07/24/2024 N/A Procedure: PCI AMI Revascularization Single Vessel (W LEAH); Surgeon: García Fink DO; Location: [facility] 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 SPINE SURGERY Medical History Medical History Date Comments Hodgkin's lymphoma (HCC) 2016 Hypertension Hyperlipidemia HIV (human immunodeficiency virus infection) (HC C) Neuropathy Prediabetes 03/09/2023 Mixed hyperlipidemia 03/09/2023 HIV infection (HCC) 03/09/2023 History of Hodgkin's lymphoma 03/09/2023 Frequent headaches 03/22/2024 Essential hypertension 03/09/2023 Cervical radiculopathy 07/23/2023 Anxiety 01/18/2024 Current smoker 01/18/2024 GERD (gastroesophageal reflux disease) Family History Medical History Relation Name Comments Heart attack Maternal Grandfather Gemini Stroke Maternal Grandmother Gemini Arthritis Mother Nella Asthma Mother Nella COPD Mother Nella Diabetes Mother Nella Heart failure Mother Nella Hypotension Mother Nella Mental illness Mother Nella Anesthesia problems Neg Hx Relation Name Status Comments Father Alive Maternal Grandfather Gemini Alive Maternal Grandmother Gemini Alive Mother Nella Alive Social History Tobacco Use Types Packs/Day Years Used Date Smoking Tobacco: Every Day Cigarettes 1.5 22.7 Started: 2002 Passive Smoke Exposure: Never Smokeless Tobacco: Never Tobacco Cessation:Ready to Q uit: Yes; Counseling Given: Yes Alcohol Use Standard Drinks/Week Comments Yes 0 (1 standard drink = 0.6 oz pur e alcohol) rarely Basic-Fitities Answer Date Recorded In the past 12 months has [employer] electric, gas, oil, or water [place] threatened to shut off services in your home? No 07/24/2024 Social Connection and Isolation Panel Answer Date Recorded In a typical week, how many times do you talk on the phone with family, friends, or neighbors? Twice a week 07/24/2024 How often do you get together with friends or re latives? Once a week 07/24/2024 How often do you attend taoist or tenriism serv ices? Never 07/24/2024 Do you belong to any clubs o r organizations such as taoist groups, unions, fraternal or athletic groups, or school groups? No 07/24/2024 How often do you attend meet ings of the clubs or organizations you belong to? Never 07/24/2024 Are you , , di vorced, , never , or living with a partner? Never 07/24/2024 AUDIT-C Answer Date Recorded Q1: How often do you have a drink containing alc ohol? Monthly or less 07/24/2024 Q2: How many drinks containi ng alcohol do you have on a typical day when you are drinking? 1 or 2 07/24/2024 Q3: How often do you have si x or more drinks on one occasion? Never 07/24/2024 Overall Financial Resource Strain (CARDIA) Answe r Date Recorded How hard is it for you to pa y for the very basics like food, housing, medical care, and heating? Not very hard 07/24/2024 PHQ-2 Answer Date Recorded PHQ-2 Total Score (If total score is 3 or more points, staff should administer the PHQ-9) 0 06/13/2024 Hunger Vital Sign Answer Date Recorded Within the past 12 months, y ou worried that your food would run out before you got the money to buy more. Never true 07/25/19 25 Within the past 12 months, t he food you bought just didn't last and you didn't have money to get more. Never true 07/24/2024 PRAPARE - Transportation Answer Date Re corded In the past 12 months, has l ack of transportation kept you from medical appointments or from getting medications? No 07/11 In the past 12 months, has l ack of transportation kept you from meetings, work, or from getting things needed for daily living? No 07/24/2024 Housing Stability Vital Sign Answer James e Recorded In the last 12 months, was t here a time when you were not able to pay the mortgage or rent on time? No 07/24/2024 In the past 12 months, how m any times have you moved where you were living? 0 07/24/2024 At any time in the past 12 m [facility], were you homeless or living in a [place] facility (including now)? No 07/24/2024 Personal Safety Answer Date Recorded Have you ever been in or are you currently in a harmful physical or emotional relationship or is someone making you feel afraid or unsafe? Denies 07/22/2024 Sex and Gender Information Value Date Recorded Sex Assigned at Not on file Legal Sex Male 12:42 PM [employer]ERCIAL LIN[employer] UNDERWRITER Gender Identity Male 04/23/2023 3:41 AM COMMERCIAL LINES UNDERWRITER Sexual Orientation [place] 04/23/2023 3: 41 AM COMMERCIAL LINES UNDERWRITER Obstetrics History Last Filed Vital Signs Vital Sign Reading Time Taken Comments Blood Pressure 124/80 11/09/2024 12:54 PM CDT Pulse 81 11/09/2024 12:54 PM CDT Temperature 36.6 C (97.9 F) 11/01/2024 8:19 AM CDT Respiratory Rate 20 11/09/2024 12:5 4 PM CDT Oxygen Saturation 94% 11/09/2024 12: 54 PM CDT Inhaled Oxygen Concentration - - Weight 96.1 kg (211 lb 14.4 oz) 025 12:54 PM CDT Height 182.9 cm (6') 11/09/2024 12:54 PM CDT Body Mass Index 28.74 11/09/2024 12:54 PM CDT Plan of Treatment Health Maintenance Due Date Last Done Comments Albumin Creatinine Ratio, Urine 1982 HLA B 5701 Typing 1982 Dilated Eye Exam 1982 Foot Exam 1982 HIV+ Chlamydia and Gonorrhea Screening (Rectal) 1993 G6PD 2000 Hepatitis A Vaccines (1 of 2 - Risk 2-dose series) 2001 Hepatitis B Vaccines (1 of 3 - 19+ 3-dose series) 2001 Zoster Vaccine (1 of 2) 2001 HPV Vaccines (1 - Risk 3-dos e SCDM series) 2009 Varicella Vaccines (1 of 2 - 13+ 2-dose series) 05/14/2020 Covid-19 Vaccine (3 - Pfizer risk series) 08/28/2020 07/31/2020, 07/03/2020 Influenza Vaccine (#1) 2024 , 02/05/2021, 04/16/2020, Additional history exists DTaP/Tdap/Td Vaccine (7 - Td or Tdap) 12/18/2024 12/18/2014, 09/03/2007, 09/03/2007, Additional history exists Hepatitis A Screening 02/20/2025 02/21/2024, 023 RPR Screening 02/20/2025 02/21/2024, 03/01/2023 HIV + Chlamydia and Gonorrhe a Screening (Urine) 02/21/2025 02/22/2024 HIV+ Chlamydia and Gonorrhea Screening (Throat) 02/21/2025 02/22/2024 Hepatitis B Screening 03/22/2025 03/22/2024 Hepatitis C Screening 03/22/2025 03/22/2024 , 02/21/2024, 03/01/2023 Proteinuria screening Urinalysis (UA) 06/12/2025 06/12/2024, 07/26/2023, 08/30/2022, Additional history exists T Spot (quantiferon gold) 06/12/2025 06/12/2024, 05/2023 Depression Screening 06/13/2025 06/13/2024, 03/22/2024, 02/21/2024, Additional history exists Regular Well Visit/Exam 18-64 06/13/2025 06/13/2024, 06/10/2023 Lipid Panel 07/24/2025 07/24/2024, 03/12, 02/21/2024, Additional history exists Hemoglobin A1C 11/09/2025 11/09/2024, 07/11, 03/22/2024, Additional history exists eGFR 11/13/2025 11/13/2024, 07/11, 07/24/2024, Additional history exists Pneumococcal vaccine <65 Completed 024, 06/28/2014, 06/28/2014, Additional history exists Medical Devices Implanted Type Area Top Lift Cutter Device Identifier Shelf Expiration Date Model / Serial / Lot [employer]uv[employer] Disc Intervertebral Cervical Superior Simplify Large 5mm Lg-5 - [id number] Implanted:Qty: 1 on 07/28/2023 by Brady Charles MD PhD at [facility] Spine Cervical [employer] [id number]-5 / / [id number] Medtronic Card Vasc Surgery 2.50 X 26mm Trinity Tom[employer] Rx Coronary Stent [id number] - [id number] Implanted:Qty: 1 on 07/24/2024 by García Fink DO at [facility] Med[employer] Card Vasc Surgery 11/22/2026 [id number] / / [id number] Procedures Procedure Name Priority Date/Time Associated Diagnosis Comments AMB REFERRAL SMOKEFREETXT Routine 11/19/2024 8:45 AM CDT Nicotine dependence with current use AMB REFERRAL SMOKEFREETXT Routine 11/18/2024 9:49 AM CDT Nicotine dependence with current use CT CHEST ABDOMEN PELVIS W CONTRAST Schedule Routine, Read Routine (OP Routine) 11/15/2024 8:23 AM CDT Aneurysm of ascending aorta without rupture EGFR Routine 11/13/2024 6:49 AM CDT Prediabetes Hyperglycemia DIFFERENTIAL AUTO Routine 11/13/2024 6:4 9 AM CDT Prediabetes Hyperglycemia FRUCTOSAMINE Routine 11/13/2024 6:49 AM CDT Prediabetes Hyperglycemia BASIC METABOLIC PANEL Routine 11/13/2024 6:49 AM CDT Prediabetes Hyperglycemia CBC WITH AUTO DIFFERENTIAL Routine 11/13/2024 6:49 AM CDT Prediabetes Hyperglycemia HIV-1 RNA, QUANTITATIVE, PCR Routine 11/13/2024 6:49 AM CDT Asymptomatic HIV infection, with no history of HIV-related illness (HCC) POCT HEMOGLOBIN A1C Routine 11/09/2024 1 :08 PM CDT Elevated blood sugar LIPID PANEL Routine 07/24/2024 3:09 AM CDT URINALYSIS AND REFLEX TO MICROSCOPIC AND CULTURE Routine 06/12/2024 3:48 PM [employer] UNDERWRITER Fever, unspecified fever cause TB TEST, QUANTIFERON GOLD Routine 06/12/2024 3:48 PM [employer]ER[employer] UNDERWRITER Asymptomatic HIV infection, with no history of HIV-related illness (HCC) HEPATITIS C ANTIBODY Routine 03/22/2024 8:19 AM [employer] UNDERWRITER Need for hepatitis B screening test HEPATITIS A ANTIBODY, TOTAL Routine 02/21/2024 10:16 AM [employer]ER[employer] UNDERWRITER Screening for viral disease RPR Routine 02/21/2024 10:16 AM COMMERCIAL [employer]ES UNDERWRITER Screening examination for sexually transmitted disease from Last 3 Months or Most Recently Relevant to Health Maintenance Results * Ambulatory Referral to Smoke[facility]TXT (11/19/2024 8:45 AM CDT) Patient Enrollment Date 11/17/2024 SMOKEFREEGOV Designated Quit Date Not Selected SMOKEFREEGOV Patient Smoking Status Did not enroll SMOKEFREEGOV Brady Puckett MD OUTPATIENT REFERRAL ORDERABLES Final Result Performing Organization Address [facility] Phone Number [email or web address] * Ambulatory Referral to [facility]oke[facility] (11/18/2024 9:49 AM CDT) Patient Enrollment Date 11/17/2024 SMOKEFREEGOV Designated Quit Date Not Selected SMOKEFREEGO Patient Smoking Status Did not enroll SMOKEFREEGOV Brady Pcukett MD OUTPATIENT REFERRAL ORDERABLES Final Result Performing Organization Address [facility] de Phone Number [facility] Rontal [email or web address] * CT Chest Abdomen Pelvis W Contrast (11/15/2024 8:23 AM CDT) Anatomical Region Laterality Modality Body N/A Computed Tomogra phy 11/15/2024 5:33 PM CDT Impressions 11/15/2024 5:33 PM CDT 1. No thoracic abdominal aortic aneurysm. No acute thoracic abdominal or pelvic pathology. Electronically signed by: Charli Arzate M.D., MPH Narrative 11/15/2024 5:33 PM CDT EXAMINATION: CT CHEST ABDOMEN PELVIS W CONTRAST TECHNIQUE: Computed tomographic examination the chest, and pelvis was performed with intravenous contrast using standard protocol. HISTORY: Thoracoabdominal aortic aneurysm. COMPARISON:05/15/2024 FINDINGS: CHEST: There is mild upper lobe predominant centrilobular emphysema. There are no pulmonary nodules or masses that would suggest primary or metastatic disease. There is no focal pneumonic consolidation pneumothorax or pleural effusion. There is no supraclavicular mediastinal or hilar lymphadenopathy. Old healed granulomatous disease noted. There is coronary artery calcification. There is no pericardial thickening or effusion. On this non-angiographic study there is no findings of aortic aneurysm or dissection. There is no suggestion of intramural hematoma. There is no large central pulmonary emboli. The a sending aorta measures 2.8 cm at the level of the pulmonary artery. Abdomen pelvis: Liver, spleen, pancreas adrenal glands kidneys gallbladder are normal. There is atherosclerotic disease of the aorta. The left gastric artery arises separately from the aorta. There is no abdominal aortic aneurysm or dissection. There is atherosclerotic disease of the abdominal aorta. The pelvic vessels are patent. There is no obstruction pneumoperitoneum free fluid. Osseous windows demonstrate no lytic or blastic lesions. Procedure Note Charli Arzate MD - 11/15/2024 EXAMINATION: CT CHEST ABDOMEN PELVIS W CONTRAST TECHNIQUE: Computed tomographic examination the chest, and pelvis was performed with intravenous contrast using standard protocol. HISTORY: Thoracoabdominal aortic aneurysm. COMPARISON:05/15/2024 FINDINGS: CHEST: There is mild upper lobe predominant centrilobular emphysema. There are no pulmonary nodules or masses that would suggest primary or metastatic disease. There is no focal pneumonic consolidation pneumothorax or pleural effusion. There is no supraclavicular mediastinal or hilar lymphadenopathy. Old healed granulomatous disease noted. There is coronary artery calcification. There is no pericardial thickening or effusion. On this non-angiographic study there is no findings of aortic aneurysm or dissection. There is no suggestion of intramural hematoma. There is no large central pulmonary emboli. The a sending aorta measures 2.8 cm at the level of the pulmonary artery. Abdomen pelvis: Liver, spleen, pancreas adrenal glands kidneys gallbladder are normal. There is atherosclerotic disease of the aorta. The left gastric artery arises separately from the aorta. There is no abdominal aortic aneurysm or dissection. There is atherosclerotic disease of the abdominal aorta. The pelvic vessels are patent. There is no obstruction pneumoperitoneum free fluid. Osseous windows demonstrate no lytic or blastic lesions. IMPRESSION: 1. No thoracic abdominal aortic aneurysm. No acute thoracic abdominal or pelvic pathology. Electronically signed by: Charli Arzate M.D., MPH Oz Scott MD IMG CT PROCEDURES Final Result * eGFR (11/13/2024 6:49 AM CDT) eGFR >90 >=60 mL/min/1. 73 m2 Comment: Interpretive Data Reference Interval Normal >/= 90 mL/min/1.73m2 Mildly decreased* 60 - 89 mL/min/1.73m2 Mildly to moderately decreased 45 - 59 mL/min/1.73m2 Moderately to severely decreased 30 - 44 mL/min/1.73m2 Severely decreased 15 - 29 mL/min/1.73m2 Kidney Failure < 15 mL/min/1.73m2 *Relative to young adult level Estimated glomerular filtration rate is determined by the 2020 CKD-EPI equation recommended by the National Kidney Foundation (A Unifying Approach to GFR Estimation: Recommendations of the NKF-ASK Task Force on Reassessing the Inclusion of Race in Diagnosing Kidney Disease, JASN 2020). The CKD-EPI equation should not be used for patients with unstable renal function and has not been validated in children and those over 70. Current interpretive data was last reviewed 2021. Blood 11/13/2024 6:49 AM CDT 11/13/2024 7:01 AM CDT us Delvin Lewis MD LAB BLOOD ORDERABLES Final Resul t SALTY [facility] ([place]) [facility] Department [place] [address] * (ABNORMAL) Differential, auto (11/13/2024 6:49 AM CDT) Neutrophil abs 4.25 1.50 - 6.50 K/cumm Imm gran abs 0.02 0.00 - 0.10 K/cumm [facility] ([place]) Lymphocyte abs 5.13(H) 0.80 - 3.30 K/cumm [facility] ([place]) Monocyte abs 0.89(H) 0.20 - 0.80 K/cumm [facility] ([place]) Eosinophil abs 0.30 0.00 - 0.50 K/cumm [facility] ([place]) Basophil abs 0.07 0.00 - 0.10 K/cumm [facility] ([place]) Neutrophil pct 39.9 % [facility] ([place]) Comment: Interpretive Data Percent cell count reference ranges are not reported, since discordance with absolute values may lead to misinterpretation of CBC data. Current Interpretive Data was last revised on 2017. Imm gran pct 0.2 % [facility] ([place]) Comment: Interpretive Data Percent cell count reference ranges are not reported, since discordance with absolute values may lead to misinterpretation of CBC data. Current Interpretive Data was last revised on 2017. Lymphocyte pct 48.1 % [facility] ([place]) Comment: Interpretive Data Percent cell count reference ranges are not reported, since discordance with absolute values may lead to misinterpretation of CBC data. Current Interpretive Data was last revised on 2017. Monocyte pct 8.3 % [facility] ([place]) Comment: Interpretive Data Percent cell count reference ranges are not reported, since discordance with absolute values may lead to misinterpretation of CBC data. Current Interpretive Data was last revised on 2017. Eosinophil pct 2.8 % [facility] ([place]) Comment: Interpretive Data Percent cell count reference ranges are not reported, since discordance with absolute values may lead to misinterpretation of CBC data. Current Interpretive Data was last revised on 2017. Basophil pct 0.7 % [facility] ([place]) Comment: Interpretive Data Percent cell count reference ranges are not reported, since discordance with absolute values may lead to misinterpretation of CBC data. Current Interpretive Data was last revised on 2017. Blood 11/13/2024 6:49 AM CDT 11/13/2024 7:01 AM CDT us Delvin Lewis MD LAB BLOOD ORDERABLES Final Resul t [facility] ([place]) [facility] Department [place] [address] * (ABNORMAL) CBC with auto differential (11/13/2024 6:49 AM CDT) WBC 10.66(H) 3.80 - 9.90 K/cumm Hgb 15.3 13.0 - 17.5 g/dL [facility] ([place]) Hct 45.4 38.9 - 50.3 % [facility] ([place]) Plt 238 150 - 400 K/cumm [facility] ([place]) MPV 9.6 9.1 - 12.3 fL [facility] ([place]) RBC 4.95 4.30 - 5.80 M/cumm [facility] ([place]) MCV 91.7 81.3 - 96.4 fL [facility] ([place]) MCH 30.9 27.1 - 33.3 pg [facility] ([place]) MCHC 33.7 32.3 - 35.7 g/dL [facility] ([place]) RDW CV 12.8 11.1 - 14.9 % [facility] ([place]) RDW SD 43.2 35.7 - 48.1 fL [facility] ([place]) NRBC abs 0.00 0.00 - 0.01 K/cumm [facility] ([place]) Morphologic Screen Results confirmed by manual morphology review. [facility] ([place]) Blood 11/13/2024 6:49 AM CDT 11/13/2024 7:01 AM CDT Delvin Lewis MD LAB BLOOD ORDERABLES Edited Resu lt - Final [facility] ([place]) [facility] Department [place] [address] * Fructosamine (11/13/2024 6:49 AM CDT) Fructosamine 214 200 - 285 mcmol/L [facility] Comment: Test Performed by: [facility] - [address] [address] Answerer: Raven Aguiar Ph.D.; CLIA# [id number] Blood 11/13/2024 6:49 AM CDT 11/13/2024 7:01 AM CDT Delvin Lewis MD LAB BLOOD ORDERABLES Final Resul t [facility] ([place]) [facility] Department [place] [address] [facility] * HIV-1 RNA PCR, quantitative Blood (11/13/2024 6:49 AM CDT) [facility] HIV-1 RNA Not Detected [facility] Comment: The quantifiable range of this assay is 20 copies/mL to 10,000,000 copies/mL (1.30 log copies/mL to 7.00 log copies/mL). Testing was performed by the TRINY 6800 HIV-1 Test([employer] Testing performed at [facility] Current Interpretive Data was last revised on 2020. Testing performed by: [facility], [address] [place]., [address] Blood 11/13/2024 6:49 AM CDT 11/13/2024 10:30 AM CDT us Brady Puckett MD LAB MICROBIOLOGY - GENERAL ORD ERABLES Final Result [facility] ([place]) 1 [facility] Department [place] [address] [facility] * Basic metabolic panel (11/13/2024 6:49 AM CDT) [facility] Sodium 136 135 - 145 mmol/L [facility] ([place]) Potassium, pl 3.5 3.3 - 4.9 mmol/L [facility] ([place]) Chloride 99 97 - 110 mmol/L [facility] ([place]) CO2 24 22 - 32 mmol/L [facility] ([place]) Anion gap 13 2 - 15 mmol/L [facility] ([place]) BUN 10 6 - 25 mg/dL [facility] ([place]) Creatinine 0.99 0.80 - 1.30 mg/dL [facility] ([place]) Glucose 94 70 - 199 mg/dL [facility] ([place]) Comment: Interpretive Data Fasting glucose >/= 126 mg/dl is diagnostic for diabetes. Fasting is defined as no caloric intake for at least 8 hours. Fasting glucose between 100 mg/dl to 125 mg/dl is diagnostic of prediabetes. In a patient with classic symptoms of hyperglycemia or hyperglycemic crisis, a random glucose >/= 200 mg/dl is diagnostic for diabetes. In the absence of unequivocal hyperglycemia, results should be confirmed by repeat testing. The classification and Diagnosis of Diabetes Diabetes Care 2021; 46: S19-S40. Current interpretive data was last revised 2022. Calcium 9.5 8.5 - 10.3 mg/dL [facility] ([place]) Blood 11/13/2024 6:49 AM CDT 11/13/2024 7:01 AM CDT us Delvin Lewis MD LAB BLOOD ORDERABLES Final Resul t [facility] ([place]) 1 [facility] Department [place] [address] * (ABNORMAL) POCT hemoglobin A1c (11/09/2024 1:08 PM CDT) Hemoglobin A1C, POC 5.8(A) 4.0 - 5.6 % Capillary blood 11/09/2024 1 :08 PM CDT us Delvin Lewis MD POINT OF CARE TEST ORDERABLES Fi nal Result * (ABNORMAL) Lipid panel (07/24/2024 3:09 AM CDT) Cholesterol 138 30 - 199 mg/dL Comment: Interpretive Data Ages < or = 19 years Acceptable: <170 mg/dL Borderline high: 170-199 mg/dL High: >or= 200 mg/dL Ages > or = 20 years Desirable: <200 mg/dL Borderline high: 200-239 mg/dL High: >or= 240 mg/dL Literature References: 1. Expert Panel on Integrated Guidelines for Cardiovascular Health and Risk Reduction in Children and Adolescents. Pediatrics 2011;128:S213 2. NCEP Expert Panel. Circulation 2004;110:227 Current Interpretive Data was last revised on 2017. Triglycerides 310(H) <=149 mg/dL [facility] Comment: Interpretive Data Ages < or = 9 years Acceptable: <75 mg/dL Borderline high: 75-99 mg/dL High: >or= 100 mg/dL Ages 10 to 20 years Acceptable: <90 mg/dL Borderline high: 90-129 mg/dL High: >or= 130 mg/dL Ages > or = 20 years Desirable: <150 mg/dL Borderline high: 150-199 mg/dL High: 200-499 mg/dL Very high: >or= 499 mg/dL Literature References: 1. Expert Panel on Integrated Guidelines for Cardiovascular Health and Risk Reduction in Children and Adolescents. Pediatrics 2011;128:S213 2. NCEP Expert Panel. Circulation 2004;110:227 Current Interpretive Data was last revised on 2017. HDL 22(L) >=40 mg/dL [facility] Comment: Interpretive Data Ages < or = 19 years Acceptable: >45 mg/dL Borderline low: 40-45 mg/dL Low: <40 mg/dL Ages > or = 20 years Desirable: >or= 60 mg/dL Low: <40 mg/dL Literature References: 1. Expert Panel on Integrated Guidelines for Cardiovascular Health and Risk Reduction in Children and Adolescents. Pediatrics 2011;128:S213 2. NCEP Expert Panel. Circulation 2004;110:227 Current Interpretive Data was last revised on 2017. LDL, calculated 66 <=129 mg/dL [facility] Comment: Interpretive Data Ages < or = 19 years Acceptable: <110 mg/dL Borderline high: 110-129 mg/dL High: >or= 130 mg/dL Ages > or = 20 years Optimal: <100 mg/dL Near optimal: 100-129 mg/dL Borderline high: 130-159 mg/dL High: >160 mg/dL Calculated using the Luis LDL-C estimating equation. This equation was implemented on 2023. Prior to this date LDL-C was estimated using the Friedewald equation. Literature References: 1. Expert Panel on Integrated Guidelines for Cardiovascular Health and Risk Reduction in Children and Adolescents. Pediatrics 2011;128:S213 2. NCEP Expert Panel. Circulation 2004;110:227 3. Luis Guo et al. BRISA Cardiol. 2020 August 10;5(5):540-548. doi: 10.1001/jamacardio.2020.0013 Current Interpretive Data was last revised on 2023. Non-HDL Cholesterol 116 mg/dL [facility] Comment: Interpretive Data Ages < or = 19 years Acceptable: <120 mg/dL Borderline high: 120-144 mg/dL High: >145 mg/dL Ages > or = 20 years When triglycerides are >200 mg/dL, Non-HDL cholesterol is a secondary target of therapy with treatment goals that are 30 mg/dL greater than the LDL cholesterol target. Literature References: 1. Expert Panel on Integrated Guidelines for Cardiovascular Health and Risk Reduction in Children and Adolescents. Pediatrics 2011;128:S213 2. NCEP Expert Panel. Circulation 2004;110:227 Current Interpretive Data was last revised on 2017. Chol/HDL ratio 6 [facility] Blood 07/24/2024 3:09 AM CDT 07/24/2024 4:13 AM CDT Rhoda Castro MD LAB BLOOD ORDERABLES Final Resul t [facility] [address] [facility] Department [place] [address] * TB test, quantiferon gold (06/12/2024 3:48 PM COMMERCIAL LINES UNDERWRITER) [facility] Quantiferon TB Gold Negative Negative [facility] Comment: No interferon-gamma response to M. tuberculosis antigens was detected. Latent infection with M. tuberculosis is unlikely. A single negative result does not exclude infection with M. tuberculosis. In patients at high risk for M.tuberculosis infection, a second test should be considered in accordance with the 2017 ATS/IDSA/CDC Clinical Practice Guidelines for Diagnosis of Tuberculosis in Adults and Children [Lewinsohn DM et. al. Clin. Infect. Dis. 2017;64(2):111-115]. The reference range for the 'TB1 Ag minus Nil Result' and 'TB2 Ag minus Nil Result' is an Interferon-gamma level <0.35 IU/mL. TB-Nil -0.01 IUnits/mL [facility] TB2-Nil -0.01 IUnits/mL [facility] Mitogen-Nil 9.93 IUnits/mL [facility] NIL 0.07 IUnits/mL [facility] Comment: Test Performed by: [facility] [address] [place] [address] Answerer: Raven Aguiar Ph.D.; CLIA# [id number] Blood 06/12/2024 3:48 PM COMMERCIAL LINES UNDERWRITER 06/12/2024 8:04 PM COMMERCIAL LINES UNDERWRITER Brady Puckett MD LAB BLOOD ORDERABLES Final Res ult Performing Organization Address City/[facility]/[place] [address] [address] Department [place] [address] [facility] * Urinalysis reflex to microscopic and culture Urine, clean voided (06/12/2024 3:48 PM COMMERCIAL LINES UNDERWRITER) Color, ur Yellow Yellow Clarity, ur Clear Clear [facility] Specific gravity, ur 1.011 1.003 - 1.030 [facility] pH, urine 5.0 [facility] Comment: Interpretive Data U rine pH is affected by diet, medications, systemic acid-base disturbances, and renal tubular function. pH may affect urinary stone formation. For example, urine pH below 6.0 may help reduce the tendency for calcium phosphate stones and pH greater than 6.0 may reduce the tendency for uric acid stone formation. Source: [facility] Current Interpretive Data was last revised on 2017 Protein, ur ql Negative Negative [facility] Glucose, ur ql Negative Negative [facility] Ketones, ur Negative Negative [facility] Bilirubin, ur Negative Negative [facility] Blood, ur Negative Negative [facility] Urobilinogen, ur <2.0 <2.0 mg/dL [facility] Nitrite, ur Negative Negative [facility] Leukocyte esterase, ur Negative Negative [facility] UA reflex comment Reflex conditions for microscopic UA and culture not met. [facility] Urine, clean voided 06/12/2024 3:48 PM COMMERCIAL LINES UNDERWRITER 06/12/2024 8:04 PM COMMERCIAL LINES UNDERWRITER Brady Puckett MD LAB MICROBIOLOGY - GENERAL [place] [address] [address] Department [place] [address] * Hepatitis C antibody Blood (03/22/2024 8:19 AM COMMERCIAL LINES UNDERWRITER) Pathologist [facility] Hep C Ab Nonreactive Nonreactive Comment: Interpretive Data Nonreactive: Antibodies to HCV not detected. Does NOT exclude the possibility of recent exposure to HCV. Equivocal: Equivocal for HCV antibodies. Supplemental molecular testing will be automatically performed to determine infection status in accordance with current CDC screening recommendations. Reactive: Positive for HCV antibodies. This may represent current or past HCV infection. Supplemental molecular testing will be automatically performed to determine current infection status in accordance with current CDC screening recommendations. Interpretive data was last revised on 2019. Testing performed by: [facility], [address] [place] [address]., [id number] Blood 03/22/2024 8:19 AM COMMERCIAL LINES UNDERWRITER 03/22/2024 7:17 PM COMMERCIAL LINES UNDERWRITER us Delvin Lewis MD LAB MICROBIOLOGY - GENERAL ORDER THIERNO Final Result Performing Organization Address [facility] Co de Phone Number [facility] Department [place] [address] * (ABNORMAL) Hepatitis A antibody, total Blood (02/21/2024 10:16 AM COMMERCIAL LINES UNDERWRITER) Pathologist [facility] Hep A total Reactive( A) Nonreactive Comment:Testing performed by : [facility], [address] [place] [address]., [id number] Blood 02/21/2024 10:1 6 AM COMMERCIAL LINES UNDERWRITER 02/22/2024 9:54 AM COMMERCIAL LINES UNDERWRITER us Brady Puckett MD LAB MICROBIOLOGY - GENERAL ORD ERABLES Final Result Performing Organization Address City/[facility]/ZIP Co de Phone Number [facility] [place]MA[place] [address] Department [place] [address] * RPR Blood (02/21/2024 10:16 AM COMMERCIAL LINES UNDERWRITER) Pathologist [facility] RPR Nonreactive Nonreactive Blood 02/21/2024 10:1 6 AM COMMERCIAL LINES UNDERWRITER 02/21/2024 4:34 PM COMMERCIAL LINES UNDERWRITER Brady Puckett MD LAB MICROBIOLOGY - GENERAL [place] [address] [address] [place] [address] from Last 3 Months or Most Recently Relevant to Health Maintenance Insurance [employer] Advance Directives For more information, please contact: [phone] * Full Code (Latest Code Status on File) Date Activated Date Inactivated Comments 07/24/2024 6:56 AM 07/25/2024 5:34 PM * Full Code Date Activated Date Inactivated Comments 07/23/2024 9:32 AM 07/24/2024 6:56 AM Care Teams Oiler Helper Relationship Specialty Start Date End Date Delvin Lewis MD [address] [place] [address] [address] VILLEDA [address] [place] [address] PCP - General Family Medicine 03/09/23 Melany Serra, PT Physical Therapist Physical Therapy 05/10/23
--- OUTSIDE RECORDS SUMMARY | 2024-12-22 17:57 | XMS_ITS | Encounter Summary ---
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 No / Unsure 04/16/2020 9:34 AM PROFESSOR OF EXERCISE SCIENCE documented as of this encounter Plan of Treatment Not on file documented as of this encounter Visit Diagnoses Not on filedocumented in this encounter Additional Health Concerns Infection Onset Date Last Indicated Resolved Time COVID - 19 05/05/2020 05/05/2020 05/25/2020 12:1 8 AM PROFESSOR OF EXERCISE SCIENCE Assessment Noted Time PHQ-9 Depression Total Score: 0 11/08/19 20 1:00 PM CDT documented as of this encounter Care Teams Motor Overhauler Relationship Specialty Start Date End Date Jose Rboerto Tejeda MD [address] [address] PCP - General Family Medicine 05/09/19 Oz Metz MD [address] [address] Consulting Physician General Surgery 10/27/19 05/17/23 documented as of this encounter
--- OUTSIDE RECORDS SUMMARY | 2024-12-22 17:57 | XMS_ITS | Patient Health Record ---
Author Organization [facility] , Address [address] [place] [address] Care Team Providers Care Stone Derrickman And Rigger Name Role Phone Brigette Lewisy Primary Care Provider García Rosales Unavailable [phone] ALLERGIES No Known Allergies RESULTS Component Value Reference Range Notes X ray : Cervical Spine 7 vie ws, AP, Lateral, Swimmers, Obliques, Flexion and Extension Reviewed date:08/31/2024 01:25:32 PM Interpretation: Performing Lab: Notes/Report: REASON FOR REFERRAL No Information MEDICATIONS Medication SIG (Take, Route, Fr equency, Duration) Notes Start Date End Date Status Atorvastatin Calcium Active Plavix Active Aspirin Active Biktarvy Active Nitroglycerin Active Losartan Potassium A ctive Albuterol Active Gabapentin Active Metoprolol Succinate Active Jardiance Active PROBLEMS Problem Type ICD Code Onset Dates Problem Status W/U Status Risk SNOMED Code Notes Problem Degeneration of cervical intervertebral disc (M50.30) Active confirmed Degeneration of cervical intervertebral disc (76686509) Problem 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) Active confirmed Joint imp lant in situ (finding) (789387564) Problem Hodgkin lymphoma, unspecified, unspecified site (C81.90) Active confirmed Hodgkin's disea se (disorder) (624378853) Problem Cerebral infarction, unspecified (I63.9) Active confirmed Cerebral infarction (090861648) Problem 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) Active confirmed Old myoca rdial infarction (7614396) Problem Human immunodeficiency virus [HIV] disease (B20) Active confirmed Human immunodeficiency virus infection (27282092) Problem Cervical pain (M54.2) Active confirmed Cervical pain (96545011) VITAL SIGNS Height 72 in 08/31/2024 Weight 210 lbs 08/31/2024 BMI 28.48 kg/m2 08/31/2024 Encounters Encounter Location Date Provider Diagnosis [facility], [address] [place] [address] 08/31/2024 García Valle Degeneration of cerv ical [...] - B20) PLAN OF TREATMENT No Information Insurance Providers Payer Name Payer Address Payer Phone Subscriber Number Group Number Insured Name Patient Relationship to Insured Coverage Start Date Coverage End Date [facility] [address] [place] [address] [id number] Brady Barboza Self - patient is the insured 3 MEDICAL (GENERAL) HISTORY Medical History History ICD Code Hypertension Asthma [place] Stroke HIV Neck pain Back pain Herniated disc Hodgkin's Lymphoma Surgical History Surgery Date(Month/Year) Biopsy 08/1993 Cervical spine 07/2023 [facility] 2018
--- OUTSIDE RECORDS SUMMARY | 2024-12-22 17:57 | XMS_ITS | Clinical Summary ---
Author Organization [facility] Address [address] [place] [address] Care Team Providers Care Instructional Services Specialist Name Role Phone Unknown, Provider Primary Care Provider Unavaila ble Source Comments [facility],non-owned Affiliates and Associated Physician Practices is amultiple site organization consisting of ambulatory clinics and hospital sitesin [place], [place], [place] and [place]. This disclosure is being madepursuant to the Care Everywhere program and may not contain all information available regarding this patient. Last updated 17.[facility] Allergies Active Allergy Reactions Criticality Noted Date Comments Quetiapine Palpitations,Myalgias High 04/23/2011 tachycardia and elevated blood pressure Passed out, hypertension, hallucinations, palpitations Tachycardia seroquel Medications * Be aware that medications may not be up to date on this document. Alwaysverify current medications with the patient. albuterol HFA (Proventil; Ventolin; Proair) 108 (90 Base) MCG/ACT inhaler Inhale 2 (two) puffs by mouth every 4 hours as needed for Wheezing, Cough or Shortness of Breath Active amitriptyline (Elavil) 10 MG tablet Take 1 (one) tablet by mouth at bedtime 4 Active atorvastatin (Lipitor) 10 MG tablet Take 1 (one) tablet by mouth once daily 4 Active DULoxetine (Cymbalta) 60 MG capsule Take 1 (one) capsule by mouth once daily Active gabapentin (Neurontin) 800 MG tablet Take 1 (one) tablet by mouth 3 times daily 4 Active hydrOXYzine HCl (Atarax) 25 MG tablet Take 1 (one) tablet by mouth as needed for Itching 5 Active losartan (Cozaar) 50 MG tablet Take 1 (one) tablet by mouth once daily 4 Active propranolol (Inderal) 20 MG tablet Take 1 (one) tablet by mouth 3 times daily 4 Active rOPINIRole (Requip) 0.5 MG tablet Take 1 (one) tablet by mouth once daily as needed Active sildenafil (Viagra) 50 MG tablet Take 1 (one) tablet by mouth once daily as needed 5 Active SUMAtriptan (Imitrex) 50 MG tablet Take 1 (one) tablet by mouth once as needed 4 Active Social History Tobacco Use Types Packs/Day Years Used Date Smoking Tobacco: Never Assessed Sex and Gender Information Value Date Recorded Sex Assigned at Not on file Legal Sex Male 12:[address] TECH Gender Identity Not on file Sexual Orientation Not on file Last Filed Vital Signs Vital Sign Reading Time Taken Comments Blood Pressure 135/88 06/23/2024 8:46 AM CDT Pulse 71 06/23/2024 8:46 AM CDT Temperature 36.3 C (97.3 F) 06/23/2024 8:46 AM CDT Respiratory Rate - - Oxygen Saturation 92% 06/23/2024 8:46 AM CDT Inhaled Oxygen Concentration - - Weight 75.8 kg (167 lb) 06/23/2024 8:46 AM CDT Height 182.9 cm (6') 06/23/2024 8:46 AM CDT Body Mass Index 22.65 06/23/2024 8:46 AM CDT Plan of Treatment Health Maintenance Due Date Last Done Comments HIV SCREENING 1997 DTAP/TDAP/TD VACCINES (1 - Tdap) 2001 HEPATITIS B VACCINE (1 of 3 - 19+ 3-dose series) 2001 HPV VACCINE (1 - 3-dose SCDM series) 2009 COVID-19 VACCINE (3 - season) 2023 07/31/2020, 07/03/2020 DEPRESSION SCREENING 04/12/2024 INFLUENZA VACCINE (#1) 2024 , 02/05/2021, 04/16/2020, Additional history exists ZOSTER VACCINE (1 of 2) 2032 HEPATITIS C SCREENING Completed 06/05/2022 , 04/16/2020, 04/24/2011, Additional history exists HIB VACCINE Aged Out No longer eligi ble based on patient's age to complete this topic MENINGOCOCCAL (Group B) VACCINE SHARED DECISION-MAKING Aged Out No longer eligible based on patient's age to complete this topic MENINGOCOCCAL GROUPS A/C/Y/W VACCINE Aged Out No longer eligible based on patient's age to complete this topic PNEUMOCOCCAL VACCINE Aged Out No long er eligible based on patient's age to complete this topic Insurance [facility] Care Teams Instructional Services Specialist Relationship Specialty Start Date End Date Unknown, Provider PCP - General 06/23/24
== END 2024-12-22 18:05 | disposition home or self-care (01) ==
LOC: CHSED 17:55
PROVIDERS: Emergency Provider Family Medicine; PCP Family Medicine
DX: H92.03 Otalgia, bilateral (principal); Z79.899 Other long term (current) drug therapy
CPT/HCPCS: 99283